=== PATIENT | male | born 1955 | race Caucasian/White ===

== ENCOUNTER 2019-07-06 02:31 | Emergency (ER) | payer BC ==
--- OUTSIDE RECORDS SUMMARY | 2019-07-06 02:35 | XMS REPORT ---
:1955 [facility] [address] [place] [id number] Care Team Providers Name Role Phone MAK ROLLINS Unavailable Unavailable PEPPER DUMONT Unavailable Unavailable TOSHIA REYNA Unavailable Unavailable Problems This patient has no known problems. Allergies, Adverse Reactions, Alerts This patient has no known allergies or adverse reactions. Medications This patient has no known medications. Results Test Description Test Time Test Comments Text Results Atomic Results Result Comments BASIC METABOLIC PANEL 2017-02-13 05:26:00 Test Item Value Reference Range Comments SODIUM (BEAKER) (test 139 meq/L 136-145 xjxp=841) POTASSIUM (BEAKER) (test 4.2 meq/L 3.5-5.1 nous=328) CHLORIDE (BEAKER) (test 105 meq/L 98-107 foad=102) CO2 (BEAKER) (test mphj=877) 25 meq/L 22-29 BLOOD UREA NITROGEN (BEAKER) 13 mg/dL 7-21 (test rcow=198) CREATININE (BEAKER) (test 0.98 mg/dL 0.57-1.25 qchk=452) GLUCOSE RANDOM (BEAKER) 92 mg/dL 70-105 (test boaw=391) CALCIUM (BEAKER) (test 8.4 mg/dL 8.4-10.2 rdpm=413) EGFR (BEAKER) (test 78 mL/min/1.73 sq m ESTIMATED GFR IS NOT smpz=7926) ACCURATE CREATININE CLEARANCE IN PREDICTING GLOMERULAR FILTRATION RATE. ESTIMATED GFR IS NOT APPLICABLE FOR DIALYSIS PATIENTS. PROTHROMBIN [id number] 04:37:00 Test Item Value Reference Range Comments PROTIME (BEAKER) (test sluy=838) 21.5 seconds 11.7-14.7 INR (BEAKER) (test zilg=218) 1.9 <=5.9 RECOMMENDED COUMADIN/WARFARIN INR THERAPY RANGESSTANDARD DOSE: 2.0 - 3.0 Includes: PROPHYLAXIS forvenous thrombosis, systemic embolization; TREATMENT for venous thrombosis and/or pulmonary embolus.HIGH RISK: Target INR is 2.5-3.5 for patients with mechanical heart valves.While on warfarin.CBC W/PLT COUNT &amp ; AUTO [id number] 04:30:00 Test Item Value Reference Range Comments WHITE BLOOD CELL COUNT (BEAKER) (test sxoe=591) 7.7 K/ L 3.5-10.5 RED BLOOD CELL COUNT (BEAKER) (test eavs=783) 3.23 M/ L 4.63-6.08 HEMOGLOBIN (BEAKER) (test dllc=392) 9.2 GM/DL 13.7-17.5 HEMATOCRIT (BEAKER) (test ewpz=919) 29.6 % 40.1-51.0 MEAN CORPUSCULAR VOLUME (BEAKER) (test gzvz=797) 91.6 fL 79.0-92.2 MEAN CORPUSCULAR HEMOGLOBIN (BEAKER) (test 28.5 pg 25.7-32.2 zqgr=133) MEAN CORPUSCULAR HEMOGLOBIN CONC (BEAKER) (test 31.1 GM/DL 32.3-36.5 grco=857) RED CELL DISTRIBUTION WIDTH (BEAKER) (test 13.5 % 11.6-14.4 jbgd=944) PLATELET COUNT (BEAKER) (test qxgl=684) 357 K/CU MM 150-450 MEAN PLATELET VOLUME (BEAKER) (test nkcs=523) 9.4 fL 9.4-12.4 NUCLEATED RED BLOOD CELLS (BEAKER) (test 0 /100 WBC 0-0 gymb=460) NEUTROPHILS RELATIVE PERCENT (BEAKER) (test 66 % bvus=829) LYMPHOCYTES RELATIVE PERCENT (BEAKER) (test 18 % cugx=007) MONOCYTES RELATIVE PERCENT (BEAKER) (test 11 % htbk=687) EOSINOPHILS RELATIVE PERCENT (BEAKER) (test 3 % bzic=411) BASOPHILS RELATIVE PERCENT (BEAKER) (test 1 % xdtg=750) NEUTROPHILS ABSOLUTE COUNT (BEAKER) (test 5.05 K/ L 1.78-5.38 oprt=513) LYMPHOCYTES ABSOLUTE COUNT (BEAKER) (test 1.40 K/ L 1.32-3.57 gfxc=226) MONOCYTES ABSOLUTE COUNT (BEAKER) (test 0.85 K/ L 0.30-0.82 jaca=819) EOSINOPHILS ABSOLUTE COUNT (BEAKER) (test 0.20 K/ L 0.04-0.54 dppk=067) BASOPHILS ABSOLUTE COUNT (BEAKER) (test 0.06 K/ L 0.01-0.08 gpph=586) IMMATURE GRANULOCYTES-RELATIVE PERCENT (BEAKER) 1 % 0-1 (test suoc=5532) BASIC METABOLIC [id number] 05:51:00 Test Item Value Reference Range Comments SODIUM (BEAKER) (test 139 meq/L 136-145 jkwn=007) POTASSIUM (BEAKER) (test 4.0 meq/L 3.5-5.1 mysw=170) CHLORIDE (BEAKER) (test 108 meq/L 98-107 jlav=186) CO2 (BEAKER) (test 23 meq/L 22-29 mbxf=511) BLOOD UREA NITROGEN 10 mg/dL 7-21 (BEAKER) (test czxz=299) CREATININE (BEAKER) (test 0.87 mg/dL 0.57-1.25 kqzj=330) GLUCOSE RANDOM (BEAKER) 96 mg/dL 70-105 (test lqzi=731) CALCIUM (BEAKER) (test 8.1 mg/dL 8.4-10.2 pzmq=404) EGFR (BEAKER) (test 89 mL/min/1.73 sq m ESTIMATED GFR IS NOT uezk=6675) ACCURATE CREATININE CLEARANCE IN PREDICTING GLOMERULAR FILTRATION RATE. ESTIMATED GFR IS NOT APPLICABLE FOR DIALYSIS PATIENTS. PROTHROMBIN [id number] 05:33:00 Test Item Value Reference Range Comments PROTIME (BEAKER) (test iqyt=953) 18.4 seconds 11.7-14.7 INR (BEAKER) (test gayc=109) 1.5 <=5.9 RECOMMENDED COUMADIN/WARFARIN INR THERAPY RANGESSTANDARD DOSE: 2.0 - 3.0 Includes: PROPHYLAXIS forvenous thrombosis, systemic embolization; TREATMENT for venous thrombosis and/or pulmonary embolus.HIGH RISK: Target INR is 2.5-3.5 for patients with mechanical heart valves.While on warfarin.CBC W/PLT COUNT &amp ; AUTO [id number] 05:28:00 Test Item Value Reference Range Comments WHITE BLOOD CELL COUNT (BEAKER) (test jqvo=184) 6.6 K/ L 3.5-10.5 RED BLOOD CELL COUNT (BEAKER) (test bfny=379) 2.96 M/ L 4.63-6.08 HEMOGLOBIN (BEAKER) (test flbv=690) 8.5 GM/DL 13.7-17.5 HEMATOCRIT (BEAKER) (test bjwj=396) 26.9 % 40.1-51.0 MEAN CORPUSCULAR VOLUME (BEAKER) (test ypyw=168) 90.9 fL 79.0-92.2 MEAN CORPUSCULAR HEMOGLOBIN (BEAKER) (test 28.7 pg 25.7-32.2 gbwa=457) MEAN CORPUSCULAR HEMOGLOBIN CONC (BEAKER) (test 31.6 GM/DL 32.3-36.5 ream=416) RED CELL DISTRIBUTION WIDTH (BEAKER) (test 13.8 % 11.6-14.4 raey=909) PLATELET COUNT (BEAKER) (test asgw=786) 342 K/CU MM 150-450 MEAN PLATELET VOLUME (BEAKER) (test cbal=762) 9.1 fL 9.4-12.4 NUCLEATED RED BLOOD CELLS (BEAKER) (test 0 /100 WBC 0-0 gqss=372) NEUTROPHILS RELATIVE PERCENT (BEAKER) (test 64 % ijkt=165) LYMPHOCYTES RELATIVE PERCENT (BEAKER) (test 19 % wdva=689) MONOCYTES RELATIVE PERCENT (BEAKER) (test 12 % ljvl=972) EOSINOPHILS RELATIVE PERCENT (BEAKER) (test 3 % jsbi=656) BASOPHILS RELATIVE PERCENT (BEAKER) (test 1 % ylfw=843) NEUTROPHILS ABSOLUTE COUNT (BEAKER) (test 4.24 K/ L 1.78-5.38 admq=410) LYMPHOCYTES ABSOLUTE COUNT (BEAKER) (test 1.25 K/ L 1.32-3.57 rvio=934) MONOCYTES ABSOLUTE COUNT (BEAKER) (test 0.78 K/ L 0.30-0.82 nlkl=410) EOSINOPHILS ABSOLUTE COUNT (BEAKER) (test 0.20 K/ L 0.04-0.54 xhul=862) BASOPHILS ABSOLUTE COUNT (BEAKER) (test 0.07 K/ L 0.01-0.08 lsus=848) IMMATURE GRANULOCYTES-RELATIVE PERCENT (BEAKER) 1 % 0-1 (test wroh=4986) PROTHROMBIN TIME/[id number] 08:49:00 Test Item Value Reference Range Comments PROTIME (BEAKER) (test qkqx=563) 14.6 seconds 11.7-14.7 INR (BEAKER) (test wmqm=015) 1.1 <=5.9 RECOMMENDED COUMADIN/WARFARIN INR THERAPY RANGESSTANDARD DOSE: 2.0 - 3.0 Includes: PROPHYLAXIS forvenous thrombosis, systemic embolization; TREATMENT for venous thrombosis and/or pulmonary embolus.HIGH RISK: Target INR is 2.5-3.5 for patients with mechanical heart valves.While on warfarin.[id number] 05:23:00 Test Item Value Reference Range Comments MAGNESIUM (BEAKER) (test nvtm=700) 2.0 mg/dL 1.6-2.6 BASIC METABOLIC [id number] 05:23:00 Test Item Value Reference Range Comments SODIUM (BEAKER) (test 138 meq/L 136-145 iveh=487) POTASSIUM (BEAKER) (test 3.8 meq/L 3.5-5.1 sbmg=405) CHLORIDE (BEAKER) (test 106 meq/L 98-107 zwdd=117) CO2 (BEAKER) (test 24 meq/L 22-29 laxn=074) BLOOD UREA NITROGEN 11 mg/dL 7-21 (BEAKER) (test vnmu=942) CREATININE (BEAKER) (test 0.85 mg/dL 0.57-1.25 asaf=469) GLUCOSE RANDOM (BEAKER) 99 mg/dL 70-105 (test fbzb=944) CALCIUM (BEAKER) (test 8.2 mg/dL 8.4-10.2 qpur=846) EGFR (BEAKER) (test 92 mL/min/1.73 sq m ESTIMATED GFR IS NOT opav=8944) ACCURATE CREATININE CLEARANCE IN PREDICTING GLOMERULAR FILTRATION RATE. ESTIMATED GFR IS NOT APPLICABLE FOR DIALYSIS PATIENTS. [id number] 05:22:00 Test Item Value Reference Range Comments PHOSPHORUS (BEAKER) (test pqdl=059) 3.6 mg/dL 2.3-4.7 CBC W/PLT COUNT & AUTO [id number] 05:01:00 Test Item Value Reference Range Comments WHITE BLOOD CELL COUNT (BEAKER) (test luir=791) 6.5 K/ L 3.5-10.5 RED BLOOD CELL COUNT (BEAKER) (test ksff=002) 2.92 M/ L 4.63-6.08 HEMOGLOBIN (BEAKER) (test oscd=507) 8.3 GM/DL 13.7-17.5 HEMATOCRIT (BEAKER) (test woiy=157) 26.7 % 40.1-51.0 MEAN CORPUSCULAR VOLUME (BEAKER) (test dgms=670) 91.4 fL 79.0-92.2 MEAN CORPUSCULAR HEMOGLOBIN (BEAKER) (test 28.4 pg 25.7-32.2 xrsj=430) MEAN CORPUSCULAR HEMOGLOBIN CONC (BEAKER) (test 31.1 GM/DL 32.3-36.5 eylv=847) RED CELL DISTRIBUTION WIDTH (BEAKER) (test 13.6 % 11.6-14.4 mjhe=571) PLATELET COUNT (BEAKER) (test xjni=575) 328 K/CU MM 150-450 MEAN PLATELET VOLUME (BEAKER) (test qakt=491) 9.0 fL 9.4-12.4 NUCLEATED RED BLOOD CELLS (BEAKER) (test 0 /100 WBC 0-0 sfgz=373) NEUTROPHILS RELATIVE PERCENT (BEAKER) (test 66 % tpjk=296) LYMPHOCYTES RELATIVE PERCENT (BEAKER) (test 17 % owey=927) MONOCYTES RELATIVE PERCENT (BEAKER) (test 11 % vanj=529) EOSINOPHILS RELATIVE PERCENT (BEAKER) (test 4 % qztr=149) BASOPHILS RELATIVE PERCENT (BEAKER) (test 1 % pqdf=688) NEUTROPHILS ABSOLUTE COUNT (BEAKER) (test 4.27 K/ L 1.78-5.38 fnar=105) LYMPHOCYTES ABSOLUTE COUNT (BEAKER) (test 1.13 K/ L 1.32-3.57 mhhk=782) MONOCYTES ABSOLUTE COUNT (BEAKER) (test 0.73 K/ L 0.30-0.82 mpdv=799) EOSINOPHILS ABSOLUTE COUNT (BEAKER) (test 0.24 K/ L 0.04-0.54 tpjh=933) BASOPHILS ABSOLUTE COUNT (BEAKER) (test 0.06 K/ L 0.01-0.08 cwzd=399) IMMATURE GRANULOCYTES-RELATIVE PERCENT (BEAKER) 1 % 0-1 (test zvbs=2226) URINE [id number] 12:18:00 Test Item Value Reference Range Comments CULTURE (BEAKER) (test aebk=3843) No growth [id number] 06:26:00 Test Item Value Reference Range Comments PHOSPHORUS (BEAKER) (test xwuk=961) 4.1 mg/dL 2.3-4.7 [id number] 06:26:00 Test Item Value Reference Range Comments MAGNESIUM (BEAKER) (test hrkv=865) 2.0 mg/dL 1.6-2.6 BASIC METABOLIC [id number] 06:26:00 Test Item Value Reference Range Comments SODIUM (BEAKER) (test 140 meq/L 136-145 bioy=703) POTASSIUM (BEAKER) (test 3.9 meq/L 3.5-5.1 jjhh=105) CHLORIDE (BEAKER) (test 107 meq/L 98-107 oegl=955) CO2 (BEAKER) (test 25 meq/L 22-29 yvod=642) BLOOD UREA NITROGEN 9 mg/dL 7-21 (BEAKER) (test inzw=382) CREATININE (BEAKER) (test 0.91 mg/dL 0.57-1.25 ecqd=437) GLUCOSE RANDOM (BEAKER) 93 mg/dL 70-105 (test znug=766) CALCIUM (BEAKER) (test 8.2 mg/dL 8.4-10.2 flhx=669) EGFR (BEAKER) (test 85 mL/min/1.73 sq m ESTIMATED GFR IS NOT ynyr=4261) ACCURATE CREATININE CLEARANCE IN PREDICTING GLOMERULAR FILTRATION RATE. ESTIMATED GFR IS NOT APPLICABLE FOR DIALYSIS PATIENTS. CBC W/PLT COUNT & AUTO [id number] 05:37:00 Test Item Value Reference Range Comments WHITE BLOOD CELL COUNT (BEAKER) (test hffu=277) 7.2 K/ L 3.5-10.5 RED BLOOD CELL COUNT (BEAKER) (test pxwg=942) 2.76 M/ L 4.63-6.08 HEMOGLOBIN (BEAKER) (test cgom=401) 7.8 GM/DL 13.7-17.5 HEMATOCRIT (BEAKER) (test jqld=728) 25.6 % 40.1-51.0 MEAN CORPUSCULAR VOLUME (BEAKER) (test twbt=241) 92.8 fL 79.0-92.2 MEAN CORPUSCULAR HEMOGLOBIN (BEAKER) (test 28.3 pg 25.7-32.2 zvjy=658) MEAN CORPUSCULAR HEMOGLOBIN CONC (BEAKER) (test 30.5 GM/DL 32.3-36.5 zyzk=721) RED CELL DISTRIBUTION WIDTH (BEAKER) (test 13.8 % 11.6-14.4 rjjx=338) PLATELET COUNT (BEAKER) (test uvxe=515) 314 K/CU MM 150-450 MEAN PLATELET VOLUME (BEAKER) (test xdex=643) 9.6 fL 9.4-12.4 NUCLEATED RED BLOOD CELLS (BEAKER) (test 0 /100 WBC 0-0 bytt=576) NEUTROPHILS RELATIVE PERCENT (BEAKER) (test 68 % lgpu=857) LYMPHOCYTES RELATIVE PERCENT (BEAKER) (test 15 % jbqw=541) MONOCYTES RELATIVE PERCENT (BEAKER) (test 12 % ypny=944) EOSINOPHILS RELATIVE PERCENT (BEAKER) (test 3 % xmcp=673) BASOPHILS RELATIVE PERCENT (BEAKER) (test 1 % wkio=519) NEUTROPHILS ABSOLUTE COUNT (BEAKER) (test 4.89 K/ L 1.78-5.38 wrua=385) LYMPHOCYTES ABSOLUTE COUNT (BEAKER) (test 1.08 K/ L 1.32-3.57 dtys=655) MONOCYTES ABSOLUTE COUNT (BEAKER) (test 0.84 K/ L 0.30-0.82 jggq=802) EOSINOPHILS ABSOLUTE COUNT (BEAKER) (test 0.20 K/ L 0.04-0.54 omng=376) BASOPHILS ABSOLUTE COUNT (BEAKER) (test 0.06 K/ L 0.01-0.08 lsab=317) IMMATURE GRANULOCYTES-RELATIVE PERCENT (BEAKER) 1 % 0-1 (test kdau=1079) [id number] 06:02:00 Test Item Value Reference Range Comments PHOSPHORUS (BEAKER) (test jogh=484) 3.9 mg/dL 2.3-4.7 [id number] 06:02:00 Test Item Value Reference Range Comments MAGNESIUM (BEAKER) (test gkpy=061) 2.0 mg/dL 1.6-2.6 BASIC METABOLIC [id number] 06:02:00 Test Item Value Reference Range Comments SODIUM (BEAKER) (test 137 meq/L 136-145 hfsf=271) POTASSIUM (BEAKER) (test 3.2 meq/L 3.5-5.1 bcya=111) CHLORIDE (BEAKER) (test 102 meq/L 98-107 txtq=991) CO2 (BEAKER) (test 25 meq/L 22-29 yaoy=392) BLOOD UREA NITROGEN 11 mg/dL 7-21 (BEAKER) (test gnuk=941) CREATININE (BEAKER) (test 0.87 mg/dL 0.57-1.25 zlvf=447) GLUCOSE RANDOM (BEAKER) 100 mg/dL 70-105 (test spuu=995) CALCIUM (BEAKER) (test 8.0 mg/dL 8.4-10.2 ctww=344) EGFR (BEAKER) (test 89 mL/min/1.73 sq m ESTIMATED GFR IS NOT oxfo=4311) ACCURATE CREATININE CLEARANCE IN PREDICTING GLOMERULAR FILTRATION RATE. ESTIMATED GFR IS NOT APPLICABLE FOR DIALYSIS PATIENTS. CBC W/PLT COUNT & AUTO [id number] 05:40:00 Test Item Value Reference Range Comments WHITE BLOOD CELL COUNT (BEAKER) (test aqau=950) 7.0 K/ L 3.5-10.5 RED BLOOD CELL COUNT (BEAKER) (test ktls=565) 2.73 M/ L 4.63-6.08 HEMOGLOBIN (BEAKER) (test xziq=052) 8.0 GM/DL 13.7-17.5 HEMATOCRIT (BEAKER) (test tyxp=534) 25.2 % 40.1-51.0 MEAN CORPUSCULAR VOLUME (BEAKER) (test lczt=959) 92.3 fL 79.0-92.2 MEAN CORPUSCULAR HEMOGLOBIN (BEAKER) (test 29.3 pg 25.7-32.2 vlho=305) MEAN CORPUSCULAR HEMOGLOBIN CONC (BEAKER) (test 31.7 GM/DL 32.3-36.5 yskf=301) RED CELL DISTRIBUTION WIDTH (BEAKER) (test 13.7 % 11.6-14.4 suff=573) PLATELET COUNT (BEAKER) (test ldxn=208) 278 K/CU MM 150-450 MEAN PLATELET VOLUME (BEAKER) (test gnaq=737) 9.6 fL 9.4-12.4 NUCLEATED RED BLOOD CELLS (BEAKER) (test 0 /100 WBC 0-0 ixpq=566) NEUTROPHILS RELATIVE PERCENT (BEAKER) (test 68 % rdrq=447) LYMPHOCYTES RELATIVE PERCENT (BEAKER) (test 16 % vxry=886) MONOCYTES RELATIVE PERCENT (BEAKER) (test 12 % cbsp=903) EOSINOPHILS RELATIVE PERCENT (BEAKER) (test 2 % eaar=501) BASOPHILS RELATIVE PERCENT (BEAKER) (test 1 % pdwl=699) NEUTROPHILS ABSOLUTE COUNT (BEAKER) (test 4.78 K/ L 1.78-5.38 fvrt=117) LYMPHOCYTES ABSOLUTE COUNT (BEAKER) (test 1.11 K/ L 1.32-3.57 dqeq=640) MONOCYTES ABSOLUTE COUNT (BEAKER) (test 0.84 K/ L 0.30-0.82 awhe=423) EOSINOPHILS ABSOLUTE COUNT (BEAKER) (test 0.17 K/ L 0.04-0.54 yijj=168) BASOPHILS ABSOLUTE COUNT (BEAKER) (test 0.05 K/ L 0.01-0.08 ubtu=798) IMMATURE GRANULOCYTES-RELATIVE PERCENT (BEAKER) 1 % 0-1 (test bzun=8244) TISSUE [id number] 15:55:00Surgical Pathology Report Case: [id number] Authorizing Provider: Toshia Reyna MD Collected: 01/30/2017 1109 Ordering Location: [facility] PERIOPERATIVE Received: 01/30/2017 1242 SERVICES Pathologist: Nikolay García MD Specimens: A) - Lymph Node, Pelvic, Right, RIGHT PELVIC LYMPH NODE B) - Ligament, LEFT DEVAN'S LIGAMENT C) - LymphNode, LEFT OBTURATOR NODE D) - Lymph Node, RIGHT EXTERNAL ILIUM NODE E) - Lymph Node,RIGHT OBTURATOR LYMPH NODE F) - Prostate, RADICAL PROSTATECTOMY A. LYMPH NODES, RIGHT PELVIC, DISSECTION: - FOUR LYMPH NODES NEGATIVE FOR MALIGNANCY (0/4)B. LYMPH NODE, LEFT DEVAN'S LIGAMENT, EXCISION: - ONE LYMPH NODE NEGATIVE FOR MALIGNANCY (0/1)C. LYMPH NODES, LEFT OBTURATOR, DISSECTION: - SEVEN LYMPH NODES NEGATIVE FOR MALIGNANCY (0/7)D. LYMPH NODES, RIGHT EXTERNAL ILIAC ILIUM, DISSECTION: - THREE LYMPH NODES NEGATIVE FOR MALIGNANCY (0/3)E. LYMPH NODES, RIGHT OBTURATOR, DISSECTION: - SEVEN LYMPH NODES NEGATIVE FOR MALIGNANCY (0/7)F. PROSTATE, RADICAL RETROPUBIC PROSTATECTOMY : - ADENOCARCINOMA, CORBY 3+4=7, CONFINED TO THE PROSTATE, SURGICAL MARGINS NEGATIVE SEMINAL VESICLES, RADICAL RETROPUBIC PROSTATECTOMY : - NO PATHOLOGIC DIAGNOSIS Signing Pathologist Direct Phone Line: [phone] signed by Nikolay García MD on 02/08/2017 at 3:55PMPreliminary result electronically signed by Nikolay García MD on 02/06/2017 at 3:53 PMSections show foci of adenocarcinoma in the bilateral peripheral zone in the apex and mid gland and inthe anterior transition zone in the apex. Excellent preservation of the neurovascular bundles is noted from examination of the surgical specimen.PROSTATE GLAND: Radical Prostatectomy (Prostate Res - All Specimens) Specimen Site: Prostatic structure Tumor Site: Prostatic structureSPECIMENProcedure: Radical prostatectomy Prostate Size: Size (cm): 5.2 cm Size (cm ): 4.2 cm Size (cm): 4 cm Prostate Weight: Specify Weight (g ): 54.4 Lymph Node Sampling: Pelvic lymph node dissectionTUMOR Histologic Type: Adenocarcinoma (acinar, not otherwise specified) [place]by Pattern: Corby pattern Primary Pattern: Grade 3 Secondary Pattern: Grade 4 Tertiary Pattern: Not applicable Total [place] Score: 7 Tumor Quantitation: Proportion (percentage) of Prostate Involved by Tumor Specify (%): 10 Tumor Quantitation: Tumor size (dominant nodule, if present) Greatest Dimension (mm): 21 mm Additional Dimension (mm): 15 mm Additional Dimension (mm): 10 mm Extraprostatic Extension: Not identified Seminal Vesicle Invasion (invasion of muscular wall required): Not identified Lymph-Vascular Invasion: Not Identified Perineural Invasion: Present Treatment Effect: Not identifiedMARGINS Margins: Margins uninvolved by invasive carcinomaLYMPH NODES Regional Lymph Nodes: Number of Lymph Nodes Examined: Specify number: 22 Number of Lymph Nodes Involved: None identifiedSTAGE (pTNM) Primary Tumor (pT): +pT2c: Bilateral disease Regional Lymph Nodes (pN): pN0: No regional lymph node metastasis Distant Metastasis (pM): Not applicableADDITIONAL FINDINGS Additional Pathologic Findings: High-grade prostatic intraepithelial neoplasia (PIN) Additional Pathologic Findings: Nodular prostatic hyperplasiaSPECIAL STUDIES Ancillary Studies: Not [id number], [id number] cancerA. Right pelvic lymph node; B. Left Devan's ligament; C. Left obturator node; D. Right external iliac ilium node;E. Right obturator lymph node; F. prostate.The specimen is received in five containers of formalin all labeled with the patient 's information. Specimen A labeled "right pelvic lymph node" consists of adipose tissue measuring 3 x 2 x 1 cm yielding two rodgers-pink gritty lymph nodes measuring 0.8 and 3 cm.The specimen is entirely submitted as follows: A1 and A2 , largest lymph node bisected; A3, smaller lymph node bisected; A4 and 5, remainder of adipose tissue.Specimen B labeled "left Devan's ligament"consists of a rodgers-pink gritty lymph node measuring 2 x 1 x 0.4 cm with no other tissue present. Lymph node is entirely submitted B1. Specimen C labeled "left obturator node" consists of adipose tissue measuring 5 x 3 x 1 cm in aggregate yielding six fatty lymph nodes measuring up to 3.6 cm. The specimen is entirely submitted as follows: C1, six lymph nodes; C2 through C5, largest lymph node; C6 through C8, remainder of adipose tissue.Specimen D labeled "right external ilium node" consists of adiposetissue measuring 4.5 x 4 x 2.5 cm in aggregate, yielding three rodgers-red fatty lymph nodes measuring up to 2.6 cm. The specimen is entirely submitted as follows: D1, one lymph node bisected; D2 and 3, one lymph node bisected; D4 and 5, one lymph node bisected; D6 to D8, remainder of adipose tissue.Specimen E labeled "right obturator lymph node" consists of adipose tissue measuring 4 x 2.5 x 2 cm in aggregate yielding two lymph nodes measuring 0.6 and 2 cm. The specimen is entirely submitted as follows: E1, smaller lymph node; E2, E3 and E4, largest lymph node bisected; E5 and 6, remainder of adipose tissue. CG/pl Specimen F is received is a prostate with bilateral seminal vesicles and vas deferens. The prostate weighs 54.4 gm and measures 4.2 cm apex to base, 5.2 cm transversely and 4.0 cm anteriorto posterior. The right and left seminal vesicles measure 4.5 x 1.0 x 0.5 cm and 3.8 x 1.0 x 1.0 cm respectively. The right and left vasa deferentia measure 2.5 cm and 3.0 cm in length respectively and0.5 cm in diameter. The capsular surface of the prostate is purple-rodgers to red, dusky, focally ragged.Ink code: Right-black, left-blue.The prostate is serially sectioned from apex to base into ten slices to reveal pink-rodgers to hernadez-white, homogeneous, focally nodular prostatic parenchyma throughout. No discrete masses are identified. The prostate gland is entirely submitted.Sectioning of the seminal vesicles reveals a pink-rodgers unremarkable cut surface.Section code: The apical margins are submitted into cassette F1, and bladder neck margins are submitted into cassette F2; prostate slices are submittedin cassettes F3 through F8; right and left seminal vesicles are submitted in F9; seminal vesicle tips are submitted in F10. ?/ewPerformedCT, CHEST WITH IV CONTRAST- PE TEST [id number] 10:37: 00FINAL REPORT CT of the chest, pulmonary embolism protocol Clinical History:leg swelling, low O2 stat, recent pelvis surgery for cancer Technique: Precontrast axial images at the level of the pulmonary outflow tract are obtained for the purpose of contrast bolus tracking. Postcontrast axial images of the chest are subsequently obtained with optimal pulmonary arterial enhancement followed by delayed postcontrast images. Coronal 2D reformatted images are reviewed. This examwas performed according to our departmental dose optimization program which includes automated exposure control , adjustment of the mA and/or kV according to patient's size and/or use of iterative reconstructive technique. Comparison Film: None Discussion: Multiple filling defects are present in the right main pulmonary artery, as well as bilateral segmental and subsegmental pulmonary arteries. Thereis no supraclavicular, axillary, mediastinal or hilar lymphadenopathy. Heart and pericardium appear unremarkable. There is a small amount of fluid and air in the distal esophagus, which could be related to reflux. There is trace right- sided pleural effusion. Patchy consolidation is noted in the posterior right lower lobe, favor pulmonary infarct, alternate considerations also include aspiration, or pneumonitis. Central airways are patent, no bronchiectasis, or bronchial wall thickening. There are small nonobstructive stones in the right kidney. A few small well-circumscribed hypodensities in liver probably represent cysts. Osseous structures demonstrate early degenerative changes. Impression: Bilateral pulmonary emboli. This result is reported to Dr. Nichole Alan at the time of dictation. Trace right-sided pleural effusion. Consolidation in the posterior right lower lobe probably reflects pulmonary infarct, alternate considerations also include aspiration or pneumonitis. Small nonobstructive stones in the right kidney. Signed: Pawan Whitman MDReport Verified Date/Time: 02/08/2017 10:37:56 Reading Location: [facility] B1 C013Y CT Body Reading Room RAD , CHEST, 1 VIEW, NON [id number] 08:47:00Reason for exam:->low satsShould this be performed at the bedside?->YesFINAL REPORT TECHNIQUE: Frontal chest radiograph dated 02/08/2017. CLINICAL HISTORY: Low sats COMPARISON STUDY: None IMPRESSION:Lung volume is low accentuating pulmonary vasculature. Minimal atelectasis is seen in the lung bases. No pleural effusion or pneumothorax. Cardiomediastinal silhouette is normal in size. No pulmonary edema. No fracture. Degenerative changes are seen in the spine. Signed: Helen Cortes MDReport Verified Date/Time: 02/08/2017 08: 47:12 Reading Location: [facility] Radiology Reading Room URINALYSIS W/ [id number] 08:12:00 Test Item Value Reference Range Comments COLOR (BEAKER) (test kizn=978) Red CLARITY (BEAKER) (test anqn=397) Hazy SPECIFIC GRAVITY UA (BEAKER) (test olnv=506) 1.014 1.001-1.035 PH UA (BEAKER) (test ejbw=458) 6.5 5.0-8.0 PROTEIN UA (BEAKER) (test nrzq=159) 300 mg/dL Negative GLUCOSE UA (BEAKER) (test rsxe=272) 30 mg/dL Negative KETONES UA (BEAKER) (test artl=566) Trace Negative BILIRUBIN UA (BEAKER) (test obux=674) Negative Negative BLOOD UA (BEAKER) (test kmsw=480) Large Negative NITRITE UA (BEAKER) (test npsq=269) Negative Negative LEUKOCYTE ESTERASE UA (BEAKER) (test lybx=218) Moderate Negative UROBILINOGEN UA (BEAKER) (test iwst=217) 0.2 mg/dL 0.2-1.0 RBC UA (BEAKER) (test vmjn=879) > /HPF WBC UA (BEAKER) (test xpkf=703) 17 /HPF MUCUS (BEAKER) (test vvqg=2667) Moderate SOURCE(BEAKER) (test rlrr=6726) Urine, [place] BASIC METABOLIC [id number] 06:24:00 Test Item Value Reference Range Comments SODIUM (BEAKER) (test 133 meq/L 136-145 peml=642) POTASSIUM (BEAKER) (test 3.6 meq/L 3.5-5.1 ahtk=348) CHLORIDE (BEAKER) (test 98 meq/L 98-107 bkrf=095) CO2 (BEAKER) (test 25 meq/L 22-29 lnff=887) BLOOD UREA NITROGEN 15 mg/dL 7-21 (BEAKER) (test lmpj=695) CREATININE (BEAKER) (test 0.88 mg/dL 0.57-1.25 ndso=528) GLUCOSE RANDOM (BEAKER) 103 mg/dL 70-105 (test fssz=307) CALCIUM (BEAKER) (test 8.6 mg/dL 8.4-10.2 yaui=523) EGFR (BEAKER) (test 88 mL/min/1.73 sq m ESTIMATED GFR IS NOT wlfh=3757) ACCURATE CREATININE CLEARANCE IN PREDICTING GLOMERULAR FILTRATION RATE. ESTIMATED GFR IS NOT APPLICABLE FOR DIALYSIS PATIENTS. PROTHROMBIN [id number] 06:06:00 Test Item Value Reference Range Comments PROTIME (BEAKER) (test cjut=344) 15.4 seconds 11.7-14.7 INR (BEAKER) (test umoi=061) 1.2 <=5.9 RECOMMENDED COUMADIN/WARFARIN INR THERAPY RANGESSTANDARD DOSE: 2.0 - 3.0 Includes: PROPHYLAXIS forvenous thrombosis, systemic embolization; TREATMENT for venous thrombosis and/or pulmonary embolus.HIGH RISK: Target INR is 2.5-3.5 for patients with mechanical heart valves.CBC W/PLT COUNT & AUTO [id number] 05:56:00 Test Item Value Reference Range Comments WHITE BLOOD CELL COUNT (BEAKER) (test wygh=652) 11.7 K/ L 3.5-10.5 RED BLOOD CELL COUNT (BEAKER) (test vljs=987) 2.74 M/ L 4.63-6.08 HEMOGLOBIN (BEAKER) (test vzcn=167) 8.3 GM/DL 13.7-17.5 HEMATOCRIT (BEAKER) (test wfck=037) 25.1 % 40.1-51.0 MEAN CORPUSCULAR VOLUME (BEAKER) (test ksgu=926) 91.6 fL 79.0-92.2 MEAN CORPUSCULAR HEMOGLOBIN (BEAKER) (test 30.3 pg 25.7-32.2 bxyb=600) MEAN CORPUSCULAR HEMOGLOBIN CONC (BEAKER) (test 33.1 GM/DL 32.3-36.5 veog=582) RED CELL DISTRIBUTION WIDTH (BEAKER) (test 13.6 % 11.6-14.4 czhq=030) PLATELET COUNT (BEAKER) (test xxkh=430) 280 K/CU MM 150-450 MEAN PLATELET VOLUME (BEAKER) (test mtfv=008) 9.2 fL 9.4-12.4 NUCLEATED RED BLOOD CELLS (BEAKER) (test 0 /100 WBC 0-0 xyjm=687) NEUTROPHILS RELATIVE PERCENT (BEAKER) (test 79 % deib=902) LYMPHOCYTES RELATIVE PERCENT (BEAKER) (test 7 % nzkd=776) MONOCYTES RELATIVE PERCENT (BEAKER) (test 12 % puhs=649) EOSINOPHILS RELATIVE PERCENT (BEAKER) (test 1 % wecc=031) BASOPHILS RELATIVE PERCENT (BEAKER) (test 0 % sydz=705) NEUTROPHILS ABSOLUTE COUNT (BEAKER) (test 9.16 K/ L 1.78-5.38 weux=413) LYMPHOCYTES ABSOLUTE COUNT (BEAKER) (test 0.85 K/ L 1.32-3.57 rkbl=123) MONOCYTES ABSOLUTE COUNT (BEAKER) (test 1.43 K/ L 0.30-0.82 ptpg=638) EOSINOPHILS ABSOLUTE COUNT (BEAKER) (test 0.06 K/ L 0.04-0.54 jmlw=761) BASOPHILS ABSOLUTE COUNT (BEAKER) (test 0.05 K/ L 0.01-0.08 bijv=305) IMMATURE GRANULOCYTES-RELATIVE PERCENT (BEAKER) 1 % 0-1 (test tvkq=7382) BASIC METABOLIC [id number] 05:58:00 Test Item Value Reference Range Comments SODIUM (BEAKER) (test 138 meq/L 136-145 hjgf=358) POTASSIUM (BEAKER) (test 3.8 meq/L 3.5-5.1 kmyd=208) CHLORIDE (BEAKER) (test 107 meq/L 98-107 roxs=531) CO2 (BEAKER) (test 24 meq/L 22-29 wsgv=488) BLOOD UREA NITROGEN 12 mg/dL 7-21 (BEAKER) (test sovj=924) CREATININE (BEAKER) (test 0.72 mg/dL 0.57-1.25 zmcx=944) GLUCOSE RANDOM (BEAKER) 107 mg/dL 70-105 (test awmq=631) CALCIUM (BEAKER) (test 7.8 mg/dL 8.4-10.2 tjhp=422) EGFR (BEAKER) (test 111 mL/min/1.73 sq m ESTIMATED GFR IS NOT yvsv=3576) ACCURATE CREATININE CLEARANCE IN PREDICTING GLOMERULAR FILTRATION RATE. ESTIMATED GFR IS NOT APPLICABLE FOR DIALYSIS PATIENTS. [id number] 05:56:00 Test Item Value Reference Range Comments PHOSPHORUS (BEAKER) (test ndsq=947) 2.7 mg/dL 2.3-4.7 [id number] 05:56:00 Test Item Value Reference Range Comments MAGNESIUM (BEAKER) (test exlj=997) 1.8 mg/dL 1.6-2.6 CBC W/PLT COUNT & AUTO [id number] 05:20:00 Test Item Value Reference Range Comments WHITE BLOOD CELL COUNT (BEAKER) (test ecuh=357) 10.5 K/ L 3.5-10.5 RED BLOOD CELL COUNT (BEAKER) (test tkuq=739) 3.03 M/ L 4.63-6.08 HEMOGLOBIN (BEAKER) (test jknr=914) 8.9 GM/DL 13.7-17.5 HEMATOCRIT (BEAKER) (test vtqb=741) 27.8 % 40.1-51.0 MEAN CORPUSCULAR VOLUME (BEAKER) (test tylx=952) 91.7 fL 79.0-92.2 MEAN CORPUSCULAR HEMOGLOBIN (BEAKER) (test 29.4 pg 25.7-32.2 tbeg=386) MEAN CORPUSCULAR HEMOGLOBIN CONC (BEAKER) (test 32.0 GM/DL 32.3-36.5 rvmj=703) RED CELL DISTRIBUTION WIDTH (BEAKER) (test 13.5 % 11.6-14.4 olji=924) PLATELET COUNT (BEAKER) (test iiqr=728) 149 K/CU MM 150-450 MEAN PLATELET VOLUME (BEAKER) (test avgn=164) 10.7 fL 9.4-12.4 NUCLEATED RED BLOOD CELLS (BEAKER) (test 0 /100 WBC 0-0 lxtk=085) NEUTROPHILS RELATIVE PERCENT (BEAKER) (test 66 % rjxw=197) LYMPHOCYTES RELATIVE PERCENT (BEAKER) (test 18 % qfll=669) MONOCYTES RELATIVE PERCENT (BEAKER) (test 13 % wzyz=884) EOSINOPHILS RELATIVE PERCENT (BEAKER) (test 1 % brcn=172) BASOPHILS RELATIVE PERCENT (BEAKER) (test 1 % iunt=428) NEUTROPHILS ABSOLUTE COUNT (BEAKER) (test 6.96 K/ L 1.78-5.38 mxie=871) LYMPHOCYTES ABSOLUTE COUNT (BEAKER) (test 1.93 K/ L 1.32-3.57 oywc=336) MONOCYTES ABSOLUTE COUNT (BEAKER) (test 1.36 K/ L 0.30-0.82 zbuj=254) EOSINOPHILS ABSOLUTE COUNT (BEAKER) (test 0.12 K/ L 0.04-0.54 bnju=445) BASOPHILS ABSOLUTE COUNT (BEAKER) (test 0.05 K/ L 0.01-0.08 kgun=989) IMMATURE GRANULOCYTES-RELATIVE PERCENT (BEAKER) 1 % 0-1 (test lrjk=6852) CREATININE, BODY [id number] 12:29:00 Test Item Value Reference Range Comments CREATININE FLUID (BEAKER) (test wrva=936) 0.66 mg/dL Reference Range: No Normals Assay performance has not been validated for this type of specimen.BASIC METABOLIC [id number] 05:56:00 Test Item Value Reference Range Comments SODIUM (BEAKER) (test 140 meq/L 136-145 wvqt=384) POTASSIUM (BEAKER) (test 3.6 meq/L 3.5-5.1 eqoy=598) CHLORIDE (BEAKER) (test 110 meq/L 98-107 siaw=770) CO2 (BEAKER) (test 24 meq/L 22-29 uvir=703) BLOOD UREA NITROGEN 10 mg/dL 7-21 (BEAKER) (test ugla=625) CREATININE (BEAKER) (test 0.77 mg/dL 0.57-1.25 fplt=045) GLUCOSE RANDOM (BEAKER) 96 mg/dL 70-105 (test ykpp=640) CALCIUM (BEAKER) (test 7.3 mg/dL 8.4-10.2 gvpc=483) EGFR (BEAKER) (test 103 mL/min/1.73 sq m ESTIMATED GFR IS NOT bspk=2659) ACCURATE CREATININE CLEARANCE IN PREDICTING GLOMERULAR FILTRATION RATE. ESTIMATED GFR IS NOT APPLICABLE FOR DIALYSIS PATIENTS. [id number] 05:49:00 Test Item Value Reference Range Comments PHOSPHORUS (BEAKER) (test dqwv=427) 2.3 mg/dL 2.3-4.7 [id number] 05:49:00 Test Item Value Reference Range Comments MAGNESIUM (BEAKER) (test fcku=846) 1.9 mg/dL 1.6-2.6 HEMOGLOBIN AND [id number] 05:27:00 Test Item Value Reference Range Comments HEMOGLOBIN (BEAKER) (test ckno=551) 9.3 GM/DL 13.7-17.5 HEMATOCRIT (BEAKER) (test grwz=321) 28.4 % 40.1-51.0 BASIC METABOLIC [id number] 06:15:00 Test Item Value Reference Range Comments SODIUM (BEAKER) (test 139 meq/L 136-145 zzdm=165) POTASSIUM (BEAKER) (test 4.0 meq/L 3.5-5.1 sgcf=806) CHLORIDE (BEAKER) (test 108 meq/L 98-107 pofg=173) CO2 (BEAKER) (test 26 meq/L 22-29 bmxb=550) BLOOD UREA NITROGEN 10 mg/dL 7-21 (BEAKER) (test lhtt=926) CREATININE (BEAKER) (test 0.80 mg/dL 0.57-1.25 czsb=750) GLUCOSE RANDOM (BEAKER) 116 mg/dL 70-105 (test fzqa=723) CALCIUM (BEAKER) (test 7.8 mg/dL 8.4-10.2 xszj=136) EGFR (BEAKER) (test 98 mL/min/1.73 sq m ESTIMATED GFR IS NOT jxbj=9212) ACCURATE CREATININE CLEARANCE IN PREDICTING GLOMERULAR FILTRATION RATE. ESTIMATED GFR IS NOT APPLICABLE FOR DIALYSIS PATIENTS. HEMOGLOBIN AND [id number] 05:44:00 Test Item Value Reference Range Comments HEMOGLOBIN (BEAKER) (test raxk=270) 10.1 GM/DL 13.7-17.5 HEMATOCRIT (BEAKER) (test tyah=653) 30.6 % 40.1-51.0 HEMOGLOBIN AND [id number] 17:17:00 Test Item Value Reference Range Comments HEMOGLOBIN (BEAKER) (test ruvj=740) 10.4 GM/DL 13.7-17.5 HEMATOCRIT (BEAKER) (test tqlo=516) 31.9 % 40.1-51.0 BASIC METABOLIC [id number] 16:43:00 Test Item Value Reference Range Comments SODIUM (BEAKER) (test 141 meq/L 136-145 mymm=198) POTASSIUM (BEAKER) (test 3.5 meq/L 3.5-5.1 zupr=618) CHLORIDE (BEAKER) (test 109 meq/L 98-107 zakk=299) CO2 (BEAKER) (test 21 meq/L 22-29 qers=316) BLOOD UREA NITROGEN 11 mg/dL 7-21 (BEAKER) (test picb=720) CREATININE (BEAKER) (test 0.82 mg/dL 0.57-1.25 gckm=754) GLUCOSE RANDOM (BEAKER) 174 mg/dL 70-105 (test vsud=185) CALCIUM (BEAKER) (test 7.3 mg/dL 8.4-10.2 rvfy=009) EGFR (BEAKER) (test 96 mL/min/1.73 sq m ESTIMATED GFR IS NOT veww=0517) ACCURATE CREATININE CLEARANCE IN PREDICTING GLOMERULAR FILTRATION RATE. ESTIMATED GFR IS NOT APPLICABLE FOR DIALYSIS PATIENTS. [facility] [id number] 12:37:00 Test Item Value Reference Range Comments CALCIUM IONIZED (BEAKER) (test dhhs=256) 1.04 mmol/L 1.12-1.27 PH, BLOOD (BEAKER) (test lbgz=7121) 7.37 BLOOD GAS, [id number] 12:36:00 Test Item Value Reference Range Comments PH ARTERIAL (BEAKER) (test bvbj=334) 7.37 7.35-7.45 PCO2 ARTERIAL (BEAKER) (test wcpr=256) 43 mmHg 35-45 PO2 ARTERIAL (BEAKER) (test dvny=348) 173 mmHg 80-90 O2 SATURATION ARTERIAL (BEAKER) (test vver=288) 99.1 % 96.0-97.0 HCO3 ARTERIAL (BEAKER) (test apol=402) 25 mmol/L 21-29 BASE EXCESS ARTERIAL (BEAKER) (test rggj=062) -0.9 mmol/L -2.0-3.0 PATIENT TEMPERATURE (BEAKER) (test vlhh=9318) 37.0 C FIO2 (BEAKER) (test qzvi=3813) 100.0 % GLUCOSE-STAT [id number] 12:36:00 Test Item Value Reference Range Comments GLUCOSE RANDOM (BEAKER) (test jeok=981) 114 mg/dL 70-110 SODIUM NA-STAT [id number] 12:28:00 Test Item Value Reference Range Comments SODIUM (BEAKER) (test wysv=816) 139 meq/L 135-148 POTASSIUM-STAT [id number] 12:28:00 Test Item Value Reference Range Comments POTASSIUM (BEAKER) (test rbxc=332) 3.9 meq/L 3.6-5.5 HGB/HCT (H&H) - STAT [id number] 12:28:00 Test Item Value Reference Range Comments HEMOGLOBIN (BEAKER) (test imkc=433) 13.8 g/dL 13.0-16.8 HEMATOCRIT (BEAKER) (test sqwz=990) 41.0 % 40.0-50.0 BASIC METABOLIC [id number] 09:59:00 Test Item Value Reference Range Comments SODIUM (BEAKER) (test 140 meq/L 136-145 znjc=510) POTASSIUM (BEAKER) (test 4.2 meq/L 3.5-5.1 Specimen slightly mdbp=809) hemolyzed CHLORIDE (BEAKER) (test 107 meq/L 98-107 zpdf=200) CO2 (BEAKER) (test 24 meq/L 22-29 nsnr=269) BLOOD UREA NITROGEN 12 mg/dL 7-21 (BEAKER) (test cyfe=654) CREATININE (BEAKER) (test 0.87 mg/dL 0.57-1.25 Specimen slightly ytcg=369) hemolyzed GLUCOSE RANDOM (BEAKER) 100 mg/dL 70-105 (test tkra=418) CALCIUM (BEAKER) (test 9.0 mg/dL 8.4-10.2 pwvr=650) EGFR (BEAKER) (test 89 mL/min/1.73 sq m ESTIMATED GFR IS NOT zhdj=0646) ACCURATE CREATININE CLEARANCE IN PREDICTING GLOMERULAR FILTRATION RATE. ESTIMATED GFR IS NOT APPLICABLE FOR DIALYSIS PATIENTS. PROTHROMBIN [id number] 09:40:00 Test Item Value Reference Range Comments PROTIME (BEAKER) (test zuua=690) 14.2 seconds 11.7-14.7 INR (BEAKER) (test sypj=013) 1.1 <=5.9 RECOMMENDED COUMADIN/WARFARIN INR THERAPY RANGESSTANDARD DOSE: 2.0 - 3.0 Includes: PROPHYLAXIS forvenous thrombosis, systemic embolization; TREATMENT for venous thrombosis and/or pulmonary embolus.HIGH RISK: Target INR is 2.5-3.5 for patients with mechanical heart valves.[id number] 15:17:00 Test Item Value Reference Range Comments HEMOGLOBIN (ANIBALAKER) (test jyzg=860) 15.3 GM/DL 13.7-17.5
--- OUTSIDE RECORDS SUMMARY | 2019-07-06 02:35 | XMS REPORT | Summary of Care ---
:1955 Author Organization [facility] [place] [address] Care Team Providers Name Role Phone Luis Gaston MD Primary Care Provider Reason for Visit Reason Comments Follow Up Encounter Details Date Type Department Care Team Description 02/12[facility]2019 [facility] Follow Up Medicine Urology [address] [place] [address] [address], [place] [address] [place] [id number] Allergies No Known Allergiesdocumented as of this encounter (statuses as of 02/12/2019) Medications Medication Sig Dispensed Refills Start Date End Date Status rosuvastatin TAKE 1 TABLET 1 02/04/2019 Active (CRESTOR) 20 MG BY MOUTH tablet EVERY DAY pravastatin 0 08/30/2016 02/12/2019 Discontinued (PRAVACHOL) 40 MG tablet documented as of this encounter (statuses as of 02/12/2019) Active Problems Problem Noted Date Erectile dysfunction following radical prostatectomy 10/16/2018 JAZLYN (stress urinary incontinence), male 04/16/2017 Kidney stone 11/20/2016 Erectile dysfunction due to arterial insufficiency 10/18/2016 Prostate cancer (HCCode) 10/18/2016 High cholesterol documented as of this encounter (statuses as of 02/12/2019) Social History Tobacco Use Types Packs/Day Years Used Date Never Smoker Smokeless Tobacco: Never Used Alcohol Use Drinks/Week oz/Week Comments No Sex Assigned at Date Recorded Not on file Job Start Date Occupation Industry Not on file Not on file Not on file Travel History Travel Start Travel End No recent travel history available. documented as of this encounter Last Filed Vital Signs Vital Sign Reading Time Taken Comments Blood Pressure 136/96 02/12/2019 9:59 AM CDT Pulse 76 02/12/2019 9:59 AM CDT Temperature 36.7 C (98 F) 02/12/2019 9:59 AM CDT Respiratory Rate - - Oxygen Saturation - - Inhaled Oxygen Concentration - - Weight 106.6 kg (235 lb) 02/12/2019 9:59 AM CDT Height 177.8 cm (5' 10") 02/12/2019 9:59 AM CDT Body Mass Index 33.72 02/12/2019 9:59 AM CDT documented in this encounter Progress Notes Janusz Reyna MD - 02/12/2019 10:15 AM CDTAnricha Jeffrey Mesa is a 63 y.o. male comes in with his famiiy post -op RRP Hd pulido out day 8 then [facility] but in by ER Transferred to [facility] and dx with PE On anticoagulation and doing well Path G7 pT2N0 - pt aware Cystogram today with large leak and catheter tip appears outside of bladder Plan: Remove pulido and replace under direct vision with cysto Plan: ROV 2 weeks for cystogram and if leak resolved remove pulido 03/05/2017 Here today for follow up Cystogram still with small leak 04/16/2017 Follow up s/p RRP/PLND on 01/30/2017 Path G3+4, pT2N0 Catheter removed last week and voiding ok with some initial hematuria which clears quickly - reasured JAZLYN-5-6 pads during day and one pad at night. Mostly continent during night times. Has soft erections. He will follow up with Dr. Melendez PSA today No results found for this or any previous visit (from the past 168 hour(s)). Plan: ROV 3 months with pre-clinic PSA, UA and AUASI Today: post resection PSA in [facility] 07/16/1702/05 - RRP Dry no pads! PSA undetectable in 04/07 So much improved Saw Dr. Martinez - [facility] - [facility] for PE No results found for this or any previous visit (from the past 168 hour(s)). Imp:doing very well Plan: PSA today ROV January 2018 with pre-clinic PSA - post resection 08/27/2017 Febrile episode last week manged by PCP Dr. Gaston CT chest (no PE or consolidation) and CT A/P with fluid collection anterior to bladder Treated with ABX and fever resolved Basim Gaston and I spoke the day before and he asked me to address fluid collection Pt c/o frequency PE: Abd soft and non-tender CT films reviewed: small fluid collection anterior to bladder without evidence of infection No other prior studies available for review Imp: no intervention required as I believe this is asx I spent 15 minutes with patient and family, reviewing history and outside records and relevant imaging,conducting physical exam, plus discussion and coordination of care. More than 50% was spent counseling the patient on prognosis and treatment plan. Plan: Advised pt to follow up with Dr. Gaston as he notes perception of SOB 02/18/2018 Now one year s/p RRP 01/30/2017 Path G3+4, pT2N0 Dry no pads Undetectable PSA June 2017 with breast cancer - surgery in november Using BECKA with good results 10/16/2018 Now 1.5+ year s/p RRP 01/30/2017 Path G3+4, pT2N0 Dry no pads Undetectable PSA 02/06 with breast cancer - surgery in november. Doing well Using BECKA with good results No change in health PE: BP (!) 136/96 (BP Location: right arm, Patient Position: Sitting, Cuff Size: large) | Pulse 76 | Temp 98 F (36.7 C) (Oral) | Ht 5' 10" (1.778 m) | Wt 235 lb (106.6 kg) | BMI 33.72 kg/m Well healed incision Imp: Clinically TONI Plan:ROV 6 months with PSA pre clinic PSA ultrasensitive today 02/11/2019 Now 2 years s/p RRP 01/30/2017 Path G3+4, pT2N0 Dry no pads. Nocturia after 4 hours Undetectable PSA .003 September 2018 Using BECKA with good results No change in health Pe: BP (!) 136/96 (BP Location: right arm, Patient Position: Sitting, Cuff Size: large) | Pulse 76 | Temp 98 F (36.7 C) (Oral) | Ht 5' 10" (1.778 m) | Wt 235 lb (106.6 kg) | BMI 33.72 kg/m GEn: healthy appearing in NAD IMp: clinically TONI. ED Plan: PSA done today ROV one year pre-clinic post resection PSA documented in this encounter Plan of Treatment Name Type Priority Associated Diagnoses Order Schedule PSA TOTAL(URO DEPT) Lab Routine Prostate cancer (HCCode) Expected: 2018 (Approximate), Expires: 03/14/2019 Health Maintenance Due Date Last Done Comments COLON CANCER SCREENING: COLONOSCOPY 1955 TETANUS SHOT (ADULT) 1970 BMI FOLLOW UP PLAN 1973 HEPATITIS C SCREENING 1973 HIV SCREENING 1973 FLU VACCINE > 6 MONTHS 11/20/2018 documented as of this encounter Results Not on filedocumented in this encounter Visit Diagnoses Diagnosis Prostate cancer (HCCode) - Primary Malignant neoplasm of prostate Erectile dysfunction following radical prostatectomy Impotence of organic origin documented in this encounter
[2019-07-06] MEDS ORDERED: MORPHINE 4 MG/ML SYR ONE (02:49)
[2019-07-06] MEDS ORDERED: NA CHLORIDE 0.9% 1,000 ML ONE (02:49)
[2019-07-06] MEDS ORDERED: ONDANSETRON 4 MG/2 ML VIAL ONE ×2 (02:49→03:25)
[2019-07-06 03:00] LABS: Basophils % 0.4 % (0-1.3); Hematocrit 46.6 % (39.6-49.0); Lymphocytes % 10.8 % (15.3-44.8); MPV 9.2 fL (7.6-11.3); RBC Red Blood Cell Count 5.19 M/uL (4.33-5.43)
[2019-07-06 03:13] LABS: ALT/SGPT 52 U/L (12-78); AST/SGOT 29 U/L (15-37); Alkaline Phosphatase 81 U/L (45-117); BUN Blood Urea Nitrogen 21 mg/dL (7-18); Bicarbonate 28 mmol/L (21-32); Bilirubin Direct < 0.1 mg/dL (0-0.2); Bilirubin Total 0.4 mg/dL (0.2-1.0); Glucose Level 135 mg/dL (74-106); Lipase 219 U/L (73-393); Potassium 3.8 mmol/L (3.5-5.1); Protein, Total 7.7 g/dL (6.4-8.2); Sodium Level 143 mmol/L (136-145)
[2019-07-06] MEDS ORDERED: KETOROLAC 30 MG/ML INJ ONE (03:14)
--- NOTE | 2019-07-06 04:12 | ER ---
Nurse's Notes [facility] Name: Christ Mesa Age: 64 yrs Sex: Male : 1955 Arrival Date: 07/06/2019 Time: 02:32 Bed 19 Private MD: Diagnosis: Calculus of ureter Presentation: 07/05 02:38 Ebola Screen: No symptoms or risks identified at this time. Initial Sepsis Screen: Does ea the patient meet any 2 criteria? No. Patient's initial sepsis screen is negative. Does the patient have a suspected source of infection? No. Patient's initial sepsis screen is negative. 02:38 Chief complaint: Patient states: Reports right flank pain that started at 0130, rates ea pain 9/10. States " I had prostate surgery they found a few little kidney stones but I have never had pain like this". Coronavirus screen: The patient has NOT traveled to a country currently being monitored by the [facility] within the last 14 days. Risk Assessment: Do you want to hurt yourself or someone else? Patient reports no desire to harm self or others. 02:38 Acuity: CASEY 3 ea 02:38 Method Of Arrival: Ambulatory ea 03:07 Onset of symptoms was July 06, 2019. ea Triage Assessment: 02:38 General: Appears uncomfortable, Behavior is appropriate for age. Pain: Complains of ea pain in right mid back. Neuro: Level of Consciousness is awake, alert, obeys commands, Oriented to person, place, time, situation. Respiratory: Airway is patent Respiratory effort is even, unlabored, Respiratory pattern is regular, symmetrical. GI: Abdomen is non-distended, Reports nausea. Derm: Skin is pink, warm \\T\\ dry. Historical: - Allergies: 03:02 No Known Allergies; ea - Home Meds: 03:02 tramadol 50 mg Oral tab 1 tab every 6 hours [Active]; ea - PMHx: 03:02 PROSTATE CA; High Cholesterol; ea - PSHx: 03:02 prostatectomy; laser prostate treatment; jaw surg; ea - Immunization history:: Adult Immunizations up to date. - Social history:: Smoking status: Patient denies any tobacco usage or history of. Screenin:51 Abuse screen: Denies threats or abuse. Nutritional screening: No deficits noted. ea Tuberculosis screening: No symptoms or risk factors identified. Fall Risk None identified. Assessment: 02:51 Reassessment: Patient and/or family updated on plan of care and expected duration. Pain ea level reassessed. Patient is alert, oriented x 3, equal unlabored respirations, skin warm/dry/pink. Pt taken to CT. Vital Signs: 02:38 BP 140 / 90; Pulse 64; Resp 18; Temp 97.6; Pulse Ox 100% on R/A; Weight 106.59 kg; ea Height 5 ft. 11 in. (180.34 cm); Pain 9/10; 02:38 Body Mass Index 32.78 (106.59 kg, 180.34 cm) ea ED Course: 02:32 Patient arrived in ED. cl3 02:37 Edmundo Moyer MD is Attending Physician. tw4 02:38 Patient placed in an exam room, on a stretcher, on pulse oximetry. ea 02:40 Ellen Geronimo, HILARIO is Primary Nurse. ea 02:42 Pulse ox on. NIBP on. ea 02:45 Initial lab(s) drawn, by me, sent to lab. Inserted saline lock: 20 gauge in right bb antecubital area, using aseptic technique. Blood collected. 02:52 Patient has correct armband on for positive identification. Bed in low position. Call ea light in reach. Side rails up X2. 03:00 Triage completed. ea 03:17 CT Stone Protocol In Process Unspecified. EDMS 04:12 No provider procedures requiring assistance completed. sg 04:20 IV discontinued, intact, bleeding controlled, No redness/swelling at site. Pressure ea dressing applied. Administered Medications: 02:00 Drug: morphine 4 mg Route: IVP; Site: right antecubital; ea 03:27 Follow up: Response: No adverse reaction; Pain is decreased; RASS: Restless (+1); ea verbal order for Toradol 30 mg IVP obtained, medication administered, pt reports pain has decreased 02:48 Drug: Zofran (Ondansetron) 4 mg Route: IVP; Site: right antecubital; ea 03:28 Follow up: Response: No adverse reaction ea 02:48 Drug: NS 0.9% 1000 ml Route: IV; Rate: 1 bolus; Site: right antecubital; ea 04:25 Follow up: Response: No adverse reaction; IV Status: Completed infusion; IV Intake: ea 1000ml 03:18 Drug: TORadol 30 mg Route: IVP; Site: right antecubital; ea 03:26 Follow up: Response: No adverse reaction; Pain is decreased ea 03:25 Drug: Zofran (Ondansetron) 4 mg Route: IVP; Site: right antecubital; ea 04:12 Follow up: Response: No adverse reaction; Nausea is decreased sg 04:20 Drug: Flomax 0.4 mg Route: PO; ea 04:27 Follow up: Response: Medication administered at discharge. ea Intake: 04:25 IV: 1000ml; Total: 1000ml. ea Outcome: 04:11 Discharge ordered by tw4 04:28 Discharged to home ambulatory, with family. ea 04:28 Condition: stable 04:28 Discharge instructions given to patient, Instructed on discharge instructions, follow up and referral plans. medication usage, Demonstrated understanding of instructions, follow-up care, medications, Prescriptions given X 4. 04:29 Patient left the ED. ea Signatures: Dispatcher [employer] EDUgo Devlin RN RN Sushila Stovall RN RN Ellen Mills RN Edmundo Mcclure ea, MD MD tw4 Yunior Lozano cl3 Corrections: (The following items were deleted from the chart) 03:27 03:26 Response: No adverse reaction; Pain is decreased; RASS: Restless (+1) ea ea
--- NOTE | 2019-07-06 04:12 | EDPHYS ---
Physician Documentation [facility] Name: Christ Mesa Age: 64 yrs Sex: Male : 1955 Arrival Date: 07/06/2019 Time: 02:32 Bed 19 Private MD: ED Physician Edmundo Moyer HPI: 07/05 02:43 This 64 yrs old Male presents to ER via Unassigned with complaints of tw4 Possible Kidney Stone. 02:43 The patient complains of pain in the right mid back. The pain does not radiate. Onset: tw4 The symptoms/episode began/occurred today. Modifying factors: The symptoms are alleviated by nothing. the symptoms are aggravated by nothing. Associated signs and symptoms: Pertinent positives: nausea, vomiting. Severity of pain: At its worst the pain was moderate in the emergency department the pain is unchanged. The patient has not experienced similar symptoms in the past. Historical: - Allergies: 03:02 No Known Allergies; ea - Home Meds: 03:02 tramadol 50 mg Oral tab 1 tab every 6 hours [Active]; ea - PMHx: 03:02 PROSTATE CA; High Cholesterol; ea - PSHx: 03:02 prostatectomy; laser prostate treatment; jaw surg; ea - Immunization history:: Adult Immunizations up to date. - Social history:: Smoking status: Patient denies any tobacco usage or history of. ROS: 02:43 Constitutional: Negative for fever, chills, and weight loss, Eyes: Negative for injury, tw4 pain, redness, and discharge, Cardiovascular: Negative for chest pain, palpitations, and edema, Respiratory: Negative for shortness of breath, cough, wheezing, and pleuritic chest pain, Abdomen/GI: Negative for abdominal pain, nausea, vomiting, diarrhea, and constipation, MS/Extremity: Negative for injury and deformity, Skin: Negative for injury, rash, and discoloration, Neuro: Negative for headache, weakness, numbness, tingling, and seizure. 02:43 Back: Positive for flank pain, on the right. Exam: 02:43 Constitutional: This is a well developed, well nourished patient who is awake, alert, tw4 and in no acute distress. Head/Face: Normocephalic, atraumatic. Eyes: Pupils equal round and reactive to light, extra-ocular motions intact. Lids and lashes normal. Conjunctiva and sclera are non-icteric and not injected. Cornea within normal limits. Periorbital areas with no swelling, redness, or edema. Chest/axilla: Normal chest wall appearance and motion. Nontender with no deformity. No lesions are appreciated. Cardiovascular: Regular rate and rhythm with a normal S1 and S2. No gallops, murmurs, or rubs. Normal PMI, no JVD. No pulse deficits. Respiratory: Lungs have equal breath sounds bilaterally, clear to auscultation and percussion. No rales, rhonchi or wheezes noted. No increased work of breathing, no retractions or nasal flaring. Abdomen/GI: Soft, non-tender, with normal bowel sounds. No distension or tympany. No guarding or rebound. No evidence of tenderness throughout. MS/ Extremity: Pulses equal, no cyanosis. Neurovascular intact. Full, normal range of motion. Neuro: Awake and alert, GCS 15, oriented to person, place, time, and situation. Cranial nerves II-XII grossly intact. Motor strength 5/5 in all extremities. Sensory grossly intact. Cerebellar exam normal. Normal gait. 02:43 Back: pain, that is moderate, ROM is normal, CVA tenderness, that is moderate, is noted on the right. Vital Signs: 02:38 BP 140 / 90; Pulse 64; Resp 18; Temp 97.6; Pulse Ox 100% on R/A; Weight 106.59 kg; ea Height 5 ft. 11 in. (180.34 cm); Pain 9/10; 02:38 Body Mass Index 32.78 (106.59 kg, 180.34 cm) ea MDM: 02:48 Patient medically screened. tw4 04:12 Differential diagnosis: nephrolithiasis, pyelonephritis, UTI, ruptured AAA, dissecting tw4 AAA. Data reviewed: vital signs, nurses notes, lab test result(s), CBC, electrolytes, urinalysis, radiologic studies, CT scan. Data interpreted: Pulse oximetry: Interpretation: normal. Counseling: I had a detailed discussion with the patient and/or guardian regarding: the historical points, exam findings, and any diagnostic results supporting the discharge/admit diagnosis. Medication response: Toradol relieved patient's pain. The symptoms have resolved. Response to treatment: the patient's symptoms have resolved after treatment, and as a result, I will discharge patient, administer pain medication. Special discussion: I discussed with the patient/guardian in detail that at this point there is no indication for admission to the hospital. It is understood, however, that if the symptoms persist or worsen the patient needs to return immediately for re-evaluation. 07/05 02:39 Order name: Basic Metabolic Panel; Complete Time: 03:24 tw4 07/05 03:24 Interpretation: Normal except: BUN 21; GLUC 135; CL 110; GFR 58. tw07/05 02:39 Order name: CBC with Diff; Complete Time: 03:24 tw4 07/05 03:24 Interpretation: Normal except: MCH 29.9; MCV 89.9; LALIT% 81.0; LYM% 10.8. 07/05 02:39 Order name: Creatinine for Radiology; Complete Time: 03:24 4 07/05 03:24 Interpretation: Normal except: GFR 57. 07/05 02:39 Order name: Hepatic Function; Complete Time: 03:24 4 07/05 03:24 Interpretation: Normal except: GLOB 3.7. 07/05 02:39 Order name: Lipase; Complete Time: 03:24 4 07/05 03:24 Interpretation: Within normal limits: LIP 219. 07/05 02:42 Order name: CT Stone Protocol ea 07/05 02:39 Order name: IV Saline Lock; Complete Time: 02:51 tw4 07/05 02:39 Order name: Labs collected and sent; Complete Time: 02:51 tw4 Administered Medications: 02:00 Drug: morphine 4 mg Route: IVP; Site: right antecubital; ea 03:27 Follow up: Response: No adverse reaction; Pain is decreased; RASS: Restless (+1); ea verbal order for Toradol 30 mg IVP obtained, medication administered, pt reports pain has decreased 02:48 Drug: Zofran (Ondansetron) 4 mg Route: IVP; Site: right antecubital; ea 03:28 Follow up: Response: No adverse reaction ea 02:48 Drug: NS 0.9% 1000 ml Route: IV; Rate: 1 bolus; Site: right antecubital; ea 04:25 Follow up: Response: No adverse reaction; IV Status: Completed infusion; IV Intake: ea 1000ml 03:18 Drug: TORadol 30 mg Route: IVP; Site: right antecubital; ea 03:26 Follow up: Response: No adverse reaction; Pain is decreased ea 03:25 Drug: Zofran (Ondansetron) 4 mg Route: IVP; Site: right antecubital; ea 04:12 Follow up: Response: No adverse reaction; Nausea is decreased sg 04:20 Drug: Flomax 0.4 mg Route: PO; ea 04:27 Follow up: Response: Medication administered at discharge. ea Disposition: 07/06/19 04:11 Discharged to Home. Impression: Calculus of ureter. - Condition is Stable. - Discharge Instructions: Renal Colic, Kidney Stones, [id number]. - Prescriptions for Ibuprofen 800 mg Oral Tablet - take 1 tablet by ORAL route every 8 hours As needed take with food; 30 tablet. Tylenol- Codeine #3 300-30 mg Oral Tablet - take 2 tablet by ORAL route every 6 hours As needed; 30 tablet. Zofran 4 mg Oral Tablet - take 1 tablet by ORAL route every 12 hours As needed; 6 tablet. Flomax 0.4 mg Oral Capsule, Sust. Release 24 hr - take 1 capsule by ORAL route once daily 1/2 hour following the same meal each day; 30 capsule. - Medication Reconciliation Form, Thank You Letter, Antibiotic Education, Prescription Opioid Use form. - Follow up: Private Physician; When: Upon discharge from the Emergency Department; Reason: Recheck today's complaints, Continuance of care, Re-evaluation by your physician. - Problem is new. - Symptoms have improved. Signatures: Dispatcher [employer] Ellen Salas RN RN ea Wadley, Terrence, MD MD tw4 Ugo Berrios RN sg Corrections: (The following items were deleted from the chart) 04:29 04:11 07/06/2019 04:11 Discharged to Home. Impression: Calculus of ureter. Condition is ea Stable. Forms are Medication Reconciliation Form, Thank You Letter, Antibiotic Education, Prescription Opioid Use. Follow up: Private Physician; When: Upon discharge from the Emergency Department; Reason: Recheck today's complaints, Continuance of care, Re-evaluation by your physician. Problem is new. Symptoms have improved. tw4
[2019-07-06] MEDS ORDERED: TAMSULOSIN 0.4 MG SR CAP ONE (04:21)
[2019-07-06 04:36] VITALS: BP 140/90; TEMP 97.6; O2SAT 100
--- NOTE | 2019-07-06 09:00 | RAD REPORT ---
EXAM DESCRIPTION: Stone Protocol CLINICAL HISTORY: FLANK PAIN COMPARISON: None. TECHNIQUE: CT ABDOMEN PELVIS WITHOUT IV CONTRAST on 07/06/2019 2:42 AM CDT This exam was performed according to our departmental dose-optimization program, which includes autom ated exposure control, adjustment of the mA and/or kV according to patient size and/or use of iterati ve reconstruction technique. FINDINGS: Lower lungs are clear. Abdomen: There is a small cyst in the left lobe of the liver. There is no biliary dilatation. Gallbla dder is normal in appearance. There is a small hiatal hernia. The pancreas and spleen are normal in a ppearance. Adrenal glands are normal. There are two mid pole left renal calculi measuring up to 7 mm. Right kidney contains at least four calculi measuring up to 4 mm. There is mild right hydronephrosis secondary to a mid right ureteral calculus measuring 4 mm. There is no left hydronephrosis. Abdominal aorta is normal in course and caliber without aneurysm. There is no free air. There is no r etroperitoneal adenopathy.There is a tiny fat-containing umbilical hernia. Pelvis: There is no bowel obstruction. Urinary bladder is unremarkable. There is no free fluid. Prost ate has been removed. There are small fat-containing inguinal hernias. Appendix is normal. Skeleton: There are no acute osseous findings. No suspicious bony lesions. IMPRESSION: Bilateral nephrolithiasis with a mildly obstructing 4 mm mid right ureteral calculus. Electronically signed by: Alvarez Tierney MD 07/06/2019 3:20 AM CDT Due to temporary technical issues with the PACS/Fluency reporting system, reports are being signed by the in house radiologist as a courtesy to ensure prompt reporting. The interpreting radiologist is f ully responsible for the content of the report.
== END 2019-07-06 04:29 | disposition home or self-care (01) ==
LOC: ER 02:31
DX: N20.1 Calculus of ureter (principal); E78.00 Pure hypercholesterolemia, unspecified; Z85.46 Personal history of malignant neoplasm of prostate
CPT/HCPCS: 96361; 85025; 80048; 36415; 80076; 83690; 76377; 74176; 96375; 96374; 99284; J7030; J2405 ×2

== ENCOUNTER 2019-07-07 16:34 | Observation (INO) | payer BC ==
--- OUTSIDE RECORDS SUMMARY | 2019-07-07 16:38 | XMS REPORT ---
:1955 [facility] Address [address] [place] [address] Dr. Raines [address] [place] [id number] Care Team Providers Name Role Phone BEKA ROLLINSME Unavailable Unavailable PEPPER DUMONT Unavailable Unavailable TOSHIA [...] Comments SODIUM (BEAKER) (test 139 meq/L 136-145 xpwg=548) POTASSIUM (BEAKER) (test 4.2 meq/L 3.5-5.1 ctqf=860) CHLORIDE (BEAKER) (test 105 meq/L 98-107 iuep=642) CO2 (BEAKER) (test nybg=308) 25 meq/L 22-29 BLOOD UREA NITROGEN (BEAKER) 13 mg/dL 7-21 (test abtr=908) CREATININE (BEAKER) (test 0.98 mg/dL 0.57-1.25 zxob=636) GLUCOSE RANDOM (BEAKER) 92 mg/dL 70-105 (test rjpc=426) CALCIUM (BEAKER) (test 8.4 mg/dL 8.4-10.2 uxho=094) EGFR (BEAKER) (test 78 mL/min/1.73 sq m ESTIMATED GFR IS NOT xlxr=3433) ACCURATE CREATININE CLEARANCE IN PREDICTING GLOMERULAR FILTRATION RATE. ESTIMATED GFR IS NOT APPLICABLE FOR DIALYSIS PATIENTS. PROTHROMBIN TIME/[id number] 04:37:00 Test Item Value Reference Range Comments PROTIME (BEAKER) (test kgjo=143) 21.5 seconds 11.7-14.7 INR (BEAKER) (test dugn=175) 1.9 <=5.9 RECOMMENDED COUMADIN/WARFARIN INR THERAPY RANGESSTANDARD DOSE: 2.0 - 3.0 Includes: PROPHYLAXIS forvenous thrombosis, systemic embolization; TREATMENT for venous thrombosis and/or pulmonary embolus.HIGH RISK: Target INR is 2.5-3.5 for patients with mechanical heart valves.While on warfarin.CBC W/PLT COUNT &amp ; AUTO [id number] 04:30:00 Test Item Value Reference Range Comments WHITE BLOOD CELL COUNT (BEAKER) (test ding=893) 7.7 K/ L 3.5-10.5 RED BLOOD CELL COUNT (BEAKER) (test ritk=364) 3.23 M/ L 4.63-6.08 HEMOGLOBIN (BEAKER) (test lfos=249) 9.2 GM/DL 13.7-17.5 HEMATOCRIT (BEAKER) (test xgwx=285) 29.6 % 40.1-51.0 MEAN CORPUSCULAR VOLUME (BEAKER) (test uwor=363) 91.6 fL 79.0-92.2 MEAN CORPUSCULAR HEMOGLOBIN (BEAKER) (test 28.5 pg 25.7-32.2 olsu=782) MEAN CORPUSCULAR HEMOGLOBIN CONC (BEAKER) (test 31.1 GM/DL 32.3-36.5 zebn=186) RED CELL DISTRIBUTION WIDTH (BEAKER) (test 13.5 % 11.6-14.4 htyl=618) PLATELET COUNT (BEAKER) (test osra=521) 357 K/CU MM 150-450 MEAN PLATELET VOLUME (BEAKER) (test ewin=719) 9.4 fL 9.4-12.4 NUCLEATED RED BLOOD CELLS (BEAKER) (test 0 /100 WBC 0-0 bqck=810) NEUTROPHILS RELATIVE PERCENT (BEAKER) (test 66 % njxq=717) LYMPHOCYTES RELATIVE PERCENT (BEAKER) (test 18 % dkzg=174) MONOCYTES RELATIVE PERCENT (BEAKER) (test 11 % hzbe=708) EOSINOPHILS RELATIVE PERCENT (BEAKER) (test 3 % opbp=243) BASOPHILS RELATIVE PERCENT (BEAKER) (test 1 % rgwi=585) NEUTROPHILS ABSOLUTE COUNT (BEAKER) (test 5.05 K/ L 1.78-5.38 zvfg=596) LYMPHOCYTES ABSOLUTE COUNT (BEAKER) (test 1.40 K/ L 1.32-3.57 hnho=102) MONOCYTES ABSOLUTE COUNT (BEAKER) (test 0.85 K/ L 0.30-0.82 zztr=059) EOSINOPHILS ABSOLUTE COUNT (BEAKER) (test 0.20 K/ L 0.04-0.54 aozz=758) BASOPHILS ABSOLUTE COUNT (BEAKER) (test 0.06 K/ L 0.01-0.08 rpwf=792) IMMATURE GRANULOCYTES-RELATIVE PERCENT (BEAKER) 1 % 0-1 (test odah=8193) BASIC METABOLIC [id number] 05:51:00 Test Item Value Reference Range Comments SODIUM (BEAKER) (test 139 meq/L 136-145 hgps=737) POTASSIUM (BEAKER) (test 4.0 meq/L 3.5-5.1 ftpp=446) CHLORIDE (BEAKER) (test 108 meq/L 98-107 ieqr=123) CO2 (BEAKER) (test 23 meq/L 22-29 wuwg=924) BLOOD UREA NITROGEN 10 mg/dL 7-21 (BEAKER) (test zbri=534) CREATININE (BEAKER) (test 0.87 mg/dL 0.57-1.25 edbn=293) GLUCOSE RANDOM (BEAKER) 96 mg/dL 70-105 (test uovn=487) CALCIUM (BEAKER) (test 8.1 mg/dL 8.4-10.2 opgn=329) EGFR (BEAKER) (test 89 mL/min/1.73 sq m ESTIMATED GFR IS NOT ihab=3764) ACCURATE CREATININE CLEARANCE IN PREDICTING GLOMERULAR FILTRATION RATE. ESTIMATED GFR IS NOT APPLICABLE FOR DIALYSIS PATIENTS. PROTHROMBIN TIME/[id number] 05:33:00 Test Item Value Reference Range Comments PROTIME (BEAKER) (test arbw=989) 18.4 seconds 11.7-14.7 INR (BEAKER) (test qykz=761) 1.5 <=5.9 RECOMMENDED COUMADIN/WARFARIN INR THERAPY RANGESSTANDARD DOSE: 2.0 - 3.0 Includes: PROPHYLAXIS forvenous thrombosis, systemic embolization; TREATMENT for venous thrombosis and/or pulmonary embolus.HIGH RISK: Target INR is 2.5-3.5 for patients with mechanical heart valves.While on warfarin.CBC W/PLT COUNT &amp ; AUTO [id number] 05:28:00 Test Item Value Reference Range Comments WHITE BLOOD CELL COUNT (BEAKER) (test jngt=705) 6.6 K/ L 3.5-10.5 RED BLOOD CELL COUNT (BEAKER) (test ijbg=344) 2.96 M/ L 4.63-6.08 HEMOGLOBIN (BEAKER) (test ktlv=835) 8.5 GM/DL 13.7-17.5 HEMATOCRIT (BEAKER) (test nqyc=804) 26.9 % 40.1-51.0 MEAN CORPUSCULAR VOLUME (BEAKER) (test sgte=798) 90.9 fL 79.0-92.2 MEAN CORPUSCULAR HEMOGLOBIN (BEAKER) (test 28.7 pg 25.7-32.2 iutg=556) MEAN CORPUSCULAR HEMOGLOBIN CONC (BEAKER) (test 31.6 GM/DL 32.3-36.5 oiyf=942) RED CELL DISTRIBUTION WIDTH (BEAKER) (test 13.8 % 11.6-14.4 vzkr=186) PLATELET COUNT (BEAKER) (test qfpr=241) 342 K/CU MM 150-450 MEAN PLATELET VOLUME (BEAKER) (test dkop=494) 9.1 fL 9.4-12.4 NUCLEATED RED BLOOD CELLS (BEAKER) (test 0 /100 WBC 0-0 qaio=879) NEUTROPHILS RELATIVE PERCENT (BEAKER) (test 64 % jrvy=775) LYMPHOCYTES RELATIVE PERCENT (BEAKER) (test 19 % cgfk=676) MONOCYTES RELATIVE PERCENT (BEAKER) (test 12 % sdex=075) EOSINOPHILS RELATIVE PERCENT (BEAKER) (test 3 % gvtd=420) BASOPHILS RELATIVE PERCENT (BEAKER) (test 1 % wfyo=638) NEUTROPHILS ABSOLUTE COUNT (BEAKER) (test 4.24 K/ L 1.78-5.38 vdos=688) LYMPHOCYTES ABSOLUTE COUNT (BEAKER) (test 1.25 K/ L 1.32-3.57 paps=193) MONOCYTES ABSOLUTE COUNT (BEAKER) (test 0.78 K/ L 0.30-0.82 pniy=730) EOSINOPHILS ABSOLUTE COUNT (BEAKER) (test 0.20 K/ L 0.04-0.54 caiq=161) BASOPHILS ABSOLUTE COUNT (BEAKER) (test 0.07 K/ L 0.01-0.08 ioto=708) IMMATURE GRANULOCYTES-RELATIVE PERCENT (BEAKER) 1 % 0-1 (test prim=6384) PROTHROMBIN [id number] 08:49:00 Test Item Value Reference Range Comments PROTIME (BEAKER) (test rnut=966) 14.6 seconds 11.7-14.7 INR (BEAKER) (test hkxh=422) 1.1 <=5.9 RECOMMENDED COUMADIN/WARFARIN INR THERAPY RANGESSTANDARD DOSE: 2.0 - 3.0 Includes: PROPHYLAXIS forvenous thrombosis, systemic embolization; TREATMENT for venous thrombosis and/or pulmonary embolus.HIGH RISK: Target INR is 2.5-3.5 for patients with mechanical heart valves.While on warfarin.[id number] 05:23:00 Test Item Value Reference Range Comments MAGNESIUM (BEAKER) (test jzae=664) 2.0 mg/dL 1.6-2.6 BASIC METABOLIC [id number] 05:23:00 Test Item Value Reference Range Comments SODIUM (BEAKER) (test 138 meq/L 136-145 vhvr=206) POTASSIUM (BEAKER) (test 3.8 meq/L 3.5-5.1 wcwf=812) CHLORIDE (BEAKER) (test 106 meq/L 98-107 wrze=558) CO2 (BEAKER) (test 24 meq/L 22-29 beyi=137) BLOOD UREA NITROGEN 11 mg/dL 7-21 (BEAKER) (test uoqy=312) CREATININE (BEAKER) (test 0.85 mg/dL 0.57-1.25 xwmw=533) GLUCOSE RANDOM (BEAKER) 99 mg/dL 70-105 (test ujtn=844) CALCIUM (BEAKER) (test 8.2 mg/dL 8.4-10.2 hjfg=978) EGFR (BEAKER) (test 92 mL/min/1.73 sq m ESTIMATED GFR IS NOT nnjm=3520) ACCURATE CREATININE CLEARANCE IN PREDICTING GLOMERULAR FILTRATION RATE. ESTIMATED GFR IS NOT APPLICABLE FOR DIALYSIS PATIENTS. [id number] 05:22:00 Test Item Value Reference Range Comments PHOSPHORUS (BEAKER) (test goru=888) 3.6 mg/dL 2.3-4.7 CBC W/PLT COUNT & AUTO [id number] 05:01:00 Test Item Value Reference Range Comments WHITE BLOOD CELL COUNT (BEAKER) (test bzec=463) 6.5 K/ L 3.5-10.5 RED BLOOD CELL COUNT (BEAKER) (test bsdw=073) 2.92 M/ L 4.63-6.08 HEMOGLOBIN (BEAKER) (test ccsb=105) 8.3 GM/DL 13.7-17.5 HEMATOCRIT (BEAKER) (test evyh=261) 26.7 % 40.1-51.0 MEAN CORPUSCULAR VOLUME (BEAKER) (test tsft=071) 91.4 fL 79.0-92.2 MEAN CORPUSCULAR HEMOGLOBIN (BEAKER) (test 28.4 pg 25.7-32.2 vkky=710) MEAN CORPUSCULAR HEMOGLOBIN CONC (BEAKER) (test 31.1 GM/DL 32.3-36.5 erff=144) RED CELL DISTRIBUTION WIDTH (BEAKER) (test 13.6 % 11.6-14.4 ofqu=077) PLATELET COUNT (BEAKER) (test ljor=500) 328 K/CU MM 150-450 MEAN PLATELET VOLUME (BEAKER) (test kggf=514) 9.0 fL 9.4-12.4 NUCLEATED RED BLOOD CELLS (BEAKER) (test 0 /100 WBC 0-0 nnpz=742) NEUTROPHILS RELATIVE PERCENT (BEAKER) (test 66 % bwuu=790) LYMPHOCYTES RELATIVE PERCENT (BEAKER) (test 17 % okgt=505) MONOCYTES RELATIVE PERCENT (BEAKER) (test 11 % zedd=503) EOSINOPHILS RELATIVE PERCENT (BEAKER) (test 4 % wwxq=225) BASOPHILS RELATIVE PERCENT (BEAKER) (test 1 % pljh=104) NEUTROPHILS ABSOLUTE COUNT (BEAKER) (test 4.27 K/ L 1.78-5.38 ydnq=385) LYMPHOCYTES ABSOLUTE COUNT (BEAKER) (test 1.13 K/ L 1.32-3.57 kxum=217) MONOCYTES ABSOLUTE COUNT (BEAKER) (test 0.73 K/ L 0.30-0.82 lhnb=410) EOSINOPHILS ABSOLUTE COUNT (BEAKER) (test 0.24 K/ L 0.04-0.54 fgbk=217) BASOPHILS ABSOLUTE COUNT (BEAKER) (test 0.06 K/ L 0.01-0.08 gnjg=477) IMMATURE GRANULOCYTES-RELATIVE PERCENT (BEAKER) 1 % 0-1 (test mnvd=9499) URINE [id number] 12:18:00 Test Item Value Reference Range Comments CULTURE (BEAKER) (test jofb=9845) No growth [id number] 06:26:00 Test Item Value Reference Range Comments PHOSPHORUS (BEAKER) (test jjcc=910) 4.1 mg/dL 2.3-4.7 [id number] 06:26:00 Test Item Value Reference Range Comments MAGNESIUM (BEAKER) (test kzbi=299) 2.0 mg/dL 1.6-2.6 BASIC METABOLIC [id number] 06:26:00 Test Item Value Reference Range Comments SODIUM (BEAKER) (test 140 meq/L 136-145 tbia=277) POTASSIUM (BEAKER) (test 3.9 meq/L 3.5-5.1 bcdg=642) CHLORIDE (BEAKER) (test 107 meq/L 98-107 uutw=871) CO2 (BEAKER) (test 25 meq/L 22-29 xilp=099) BLOOD UREA NITROGEN 9 mg/dL 7-21 (BEAKER) (test yhwa=077) CREATININE (BEAKER) (test 0.91 mg/dL 0.57-1.25 fzgc=942) GLUCOSE RANDOM (BEAKER) 93 mg/dL 70-105 (test gqwm=153) CALCIUM (BEAKER) (test 8.2 mg/dL 8.4-10.2 ebxh=184) EGFR (BEAKER) (test 85 mL/min/1.73 sq m ESTIMATED GFR IS NOT euru=8551) ACCURATE CREATININE CLEARANCE IN PREDICTING GLOMERULAR FILTRATION RATE. ESTIMATED GFR IS NOT APPLICABLE FOR DIALYSIS PATIENTS. CBC W/PLT COUNT & AUTO [id number] 05:37:00 Test Item Value Reference Range Comments WHITE BLOOD CELL COUNT (BEAKER) (test cilv=481) 7.2 K/ L 3.5-10.5 RED BLOOD CELL COUNT (BEAKER) (test dfyx=276) 2.76 M/ L 4.63-6.08 HEMOGLOBIN (BEAKER) (test bfmj=467) 7.8 GM/DL 13.7-17.5 HEMATOCRIT (BEAKER) (test xicy=520) 25.6 % 40.1-51.0 MEAN CORPUSCULAR VOLUME (BEAKER) (test ceyj=643) 92.8 fL 79.0-92.2 MEAN CORPUSCULAR HEMOGLOBIN (BEAKER) (test 28.3 pg 25.7-32.2 bdog=764) MEAN CORPUSCULAR HEMOGLOBIN CONC (BEAKER) (test 30.5 GM/DL 32.3-36.5 wvts=877) RED CELL DISTRIBUTION WIDTH (BEAKER) (test 13.8 % 11.6-14.4 rifm=379) PLATELET COUNT (BEAKER) (test hgir=147) 314 K/CU MM 150-450 MEAN PLATELET VOLUME (BEAKER) (test ftsv=310) 9.6 fL 9.4-12.4 NUCLEATED RED BLOOD CELLS (BEAKER) (test 0 /100 WBC 0-0 hsiz=530) NEUTROPHILS RELATIVE PERCENT (BEAKER) (test 68 % ztfu=222) LYMPHOCYTES RELATIVE PERCENT (BEAKER) (test 15 % bouz=396) MONOCYTES RELATIVE PERCENT (BEAKER) (test 12 % liqk=535) EOSINOPHILS RELATIVE PERCENT (BEAKER) (test 3 % dzxu=324) BASOPHILS RELATIVE PERCENT (BEAKER) (test 1 % zzbv=326) NEUTROPHILS ABSOLUTE COUNT (BEAKER) (test 4.89 K/ L 1.78-5.38 kcyi=950) LYMPHOCYTES ABSOLUTE COUNT (BEAKER) (test 1.08 K/ L 1.32-3.57 ehjn=857) MONOCYTES ABSOLUTE COUNT (BEAKER) (test 0.84 K/ L 0.30-0.82 ddui=780) EOSINOPHILS ABSOLUTE COUNT (BEAKER) (test 0.20 K/ L 0.04-0.54 pnlp=321) BASOPHILS ABSOLUTE COUNT (BEAKER) (test 0.06 K/ L 0.01-0.08 xntg=493) IMMATURE GRANULOCYTES-RELATIVE PERCENT (BEAKER) 1 % 0-1 (test novq=3819) [id number] 06:02:00 Test Item Value Reference Range Comments PHOSPHORUS (BEAKER) (test wcmu=465) 3.9 mg/dL 2.3-4.7 [id number] 06:02:00 Test Item Value Reference Range Comments MAGNESIUM (BEAKER) (test pdzu=112) 2.0 mg/dL 1.6-2.6 BASIC METABOLIC [id number] 06:02:00 Test Item Value Reference Range Comments SODIUM (BEAKER) (test 137 meq/L 136-145 cgqa=931) POTASSIUM (BEAKER) (test 3.2 meq/L 3.5-5.1 zntw=274) CHLORIDE (BEAKER) (test 102 meq/L 98-107 xxal=012) CO2 (BEAKER) (test 25 meq/L 22-29 lfyi=369) BLOOD UREA NITROGEN 11 mg/dL 7-21 (BEAKER) (test fdsu=993) CREATININE (BEAKER) (test 0.87 mg/dL 0.57-1.25 zjwn=601) GLUCOSE RANDOM (BEAKER) 100 mg/dL 70-105 (test nmqb=504) CALCIUM (BEAKER) (test 8.0 mg/dL 8.4-10.2 poak=648) EGFR (BEAKER) (test 89 mL/min/1.73 sq m ESTIMATED GFR IS NOT rdvj=8222) ACCURATE CREATININE CLEARANCE IN PREDICTING GLOMERULAR FILTRATION RATE. ESTIMATED GFR IS NOT APPLICABLE FOR DIALYSIS PATIENTS. CBC W/PLT COUNT & AUTO [id number] 05:40:00 Test Item Value Reference Range Comments WHITE BLOOD CELL COUNT (BEAKER) (test stmb=926) 7.0 K/ L 3.5-10.5 RED BLOOD CELL COUNT (BEAKER) (test orfb=972) 2.73 M/ L 4.63-6.08 HEMOGLOBIN (BEAKER) (test comw=359) 8.0 GM/DL 13.7-17.5 HEMATOCRIT (BEAKER) (test fyit=049) 25.2 % 40.1-51.0 MEAN CORPUSCULAR VOLUME (BEAKER) (test zygu=707) 92.3 fL 79.0-92.2 MEAN CORPUSCULAR HEMOGLOBIN (BEAKER) (test 29.3 pg 25.7-32.2 ghyy=343) MEAN CORPUSCULAR HEMOGLOBIN CONC (BEAKER) (test 31.7 GM/DL 32.3-36.5 ymto=182) RED CELL DISTRIBUTION WIDTH (BEAKER) (test 13.7 % 11.6-14.4 wtge=696) PLATELET COUNT (BEAKER) (test bmay=582) 278 K/CU MM 150-450 MEAN PLATELET VOLUME (BEAKER) (test gido=632) 9.6 fL 9.4-12.4 NUCLEATED RED BLOOD CELLS (BEAKER) (test 0 /100 WBC 0-0 skwk=457) NEUTROPHILS RELATIVE PERCENT (BEAKER) (test 68 % wyhb=057) LYMPHOCYTES RELATIVE PERCENT (BEAKER) (test 16 % gtqv=817) MONOCYTES RELATIVE PERCENT (BEAKER) (test 12 % acjc=921) EOSINOPHILS RELATIVE PERCENT (BEAKER) (test 2 % errn=690) BASOPHILS RELATIVE PERCENT (BEAKER) (test 1 % cdft=937) NEUTROPHILS ABSOLUTE COUNT (BEAKER) (test 4.78 K/ L 1.78-5.38 yvjd=661) LYMPHOCYTES ABSOLUTE COUNT (BEAKER) (test 1.11 K/ L 1.32-3.57 racr=182) MONOCYTES ABSOLUTE COUNT (BEAKER) (test 0.84 K/ L 0.30-0.82 bthi=597) EOSINOPHILS ABSOLUTE COUNT (BEAKER) (test 0.17 K/ L 0.04-0.54 prao=947) BASOPHILS ABSOLUTE COUNT (BEAKER) (test 0.05 K/ L 0.01-0.08 rrri=072) IMMATURE GRANULOCYTES-RELATIVE PERCENT (BEAKER) 1 % 0-1 (test urck=8290) TISSUE [id number] 15:55:00Surgical Pathology Report Case: [id number] Authorizing Provider: Toshia Reyna MD Collected: 01/30/2017 1109 Ordering Location: [facility] Received: 01/30/2017 1242 SERVICES Pathologist: Nikolay [...] PATHOLOGIC DIAGNOSIS Signing Pathologist Direct Phone Line: [phone] signed by Nikolay García MD on 02/08/2017 [...] Histologic Type: Adenocarcinoma (acinar, not otherwise specified) Whitetail Pattern: Corby pattern Primary Pattern: Grade 3 Secondary Pattern: Grade 4 Tertiary Pattern: Not applicable Total Whitetail Score: 7 Tumor Quantitation: Proportion (percentage) of [...] Nodular prostatic hyperplasiaSPECIAL STUDIES Ancillary Studies: Not [id number], [id number] cancerA. Right pelvic lymph node; B. Left [...] ?/ewPerformedCT, CHEST WITH IV CONTRAST- PE TEST [id number] 10:37: 00FINAL REPORT CT of the chest, [...] 02/08/2017 10:37:56 Reading Location: [facility] B1 C013Y CT Body Reading Room RAD , CHEST, 1 VIEW, NON [id number] 08:47:00Reason for exam:->low satsShould this be performed [...] Verified Date/Time: 02/08/2017 08: 47:12 Reading Location: [facility] Radiology Reading Room URINALYSIS W/ [id number] 08:12:00 Test Item Value Reference Range Comments COLOR (BEAKER) (test etif=055) Red CLARITY (BEAKER) (test zpvt=520) Hazy SPECIFIC GRAVITY UA (BEAKER) (test eahx=764) 1.014 1.001-1.035 PH UA (BEAKER) (test sfnp=745) 6.5 5.0-8.0 PROTEIN UA (BEAKER) (test kbhh=516) 300 mg/dL Negative GLUCOSE UA (BEAKER) (test vrei=562) 30 mg/dL Negative KETONES UA (BEAKER) (test hcwq=616) Trace Negative BILIRUBIN UA (BEAKER) (test luml=519) Negative Negative BLOOD UA (BEAKER) (test fddl=320) Large Negative NITRITE UA (BEAKER) (test ilhd=182) Negative Negative LEUKOCYTE ESTERASE UA (BEAKER) (test mfez=425) Moderate Negative UROBILINOGEN UA (BEAKER) (test hccv=905) 0.2 mg/dL 0.2-1.0 RBC UA (BEAKER) (test qaqz=700) > /HPF WBC UA (BEAKER) (test fldp=434) 17 /HPF MUCUS (BEAKER) (test aqnt=3400) Moderate SOURCE(BEAKER) (test tvcl=7655) Urine, [place] BASIC METABOLIC [id number] 06:24:00 Test Item Value Reference Range Comments SODIUM (BEAKER) (test 133 meq/L 136-145 meco=663) POTASSIUM (BEAKER) (test 3.6 meq/L 3.5-5.1 ejmu=927) CHLORIDE (BEAKER) (test 98 meq/L 98-107 yhxz=277) CO2 (BEAKER) (test 25 meq/L 22-29 blax=381) BLOOD UREA NITROGEN 15 mg/dL 7-21 (BEAKER) (test mjfg=925) CREATININE (BEAKER) (test 0.88 mg/dL 0.57-1.25 vawi=243) GLUCOSE RANDOM (BEAKER) 103 mg/dL 70-105 (test pfti=342) CALCIUM (BEAKER) (test 8.6 mg/dL 8.4-10.2 xrgp=178) EGFR (BEAKER) (test 88 mL/min/1.73 sq m ESTIMATED GFR IS NOT gkez=3484) ACCURATE CREATININE CLEARANCE IN PREDICTING GLOMERULAR FILTRATION RATE. ESTIMATED GFR IS NOT APPLICABLE FOR DIALYSIS PATIENTS. PROTHROMBIN [id number] 06:06:00 Test Item Value Reference Range Comments PROTIME (BEAKER) (test jpkf=065) 15.4 seconds 11.7-14.7 INR (BEAKER) (test uupp=921) 1.2 <=5.9 RECOMMENDED COUMADIN/WARFARIN INR THERAPY RANGESSTANDARD DOSE: 2.0 - 3.0 Includes: PROPHYLAXIS forvenous thrombosis, systemic embolization; TREATMENT for venous thrombosis and/or pulmonary embolus.HIGH RISK: Target INR is 2.5-3.5 for patients with mechanical heart valves.CBC W/PLT COUNT & AUTO [id number] 05:56:00 Test Item Value Reference Range Comments WHITE BLOOD CELL COUNT (BEAKER) (test osld=665) 11.7 K/ L 3.5-10.5 RED BLOOD CELL COUNT (BEAKER) (test sgas=901) 2.74 M/ L 4.63-6.08 HEMOGLOBIN (BEAKER) (test vfwd=679) 8.3 GM/DL 13.7-17.5 HEMATOCRIT (BEAKER) (test kwzl=757) 25.1 % 40.1-51.0 MEAN CORPUSCULAR VOLUME (BEAKER) (test cgjn=814) 91.6 fL 79.0-92.2 MEAN CORPUSCULAR HEMOGLOBIN (BEAKER) (test 30.3 pg 25.7-32.2 qudx=738) MEAN CORPUSCULAR HEMOGLOBIN CONC (BEAKER) (test 33.1 GM/DL 32.3-36.5 gkuf=312) RED CELL DISTRIBUTION WIDTH (BEAKER) (test 13.6 % 11.6-14.4 kpfb=842) PLATELET COUNT (BEAKER) (test kbey=075) 280 K/CU MM 150-450 MEAN PLATELET VOLUME (BEAKER) (test gqin=576) 9.2 fL 9.4-12.4 NUCLEATED RED BLOOD CELLS (BEAKER) (test 0 /100 WBC 0-0 pnwp=696) NEUTROPHILS RELATIVE PERCENT (BEAKER) (test 79 % itnj=224) LYMPHOCYTES RELATIVE PERCENT (BEAKER) (test 7 % rwyv=620) MONOCYTES RELATIVE PERCENT (BEAKER) (test 12 % saio=924) EOSINOPHILS RELATIVE PERCENT (BEAKER) (test 1 % hjhy=498) BASOPHILS RELATIVE PERCENT (BEAKER) (test 0 % spku=898) NEUTROPHILS ABSOLUTE COUNT (BEAKER) (test 9.16 K/ L 1.78-5.38 xexk=091) LYMPHOCYTES ABSOLUTE COUNT (BEAKER) (test 0.85 K/ L 1.32-3.57 hwtg=878) MONOCYTES ABSOLUTE COUNT (BEAKER) (test 1.43 K/ L 0.30-0.82 tnjx=813) EOSINOPHILS ABSOLUTE COUNT (BEAKER) (test 0.06 K/ L 0.04-0.54 rtgt=344) BASOPHILS ABSOLUTE COUNT (BEAKER) (test 0.05 K/ L 0.01-0.08 zomb=828) IMMATURE GRANULOCYTES-RELATIVE PERCENT (BEAKER) 1 % 0-1 (test wtec=3532) BASIC METABOLIC [id number] 05:58:00 Test Item Value Reference Range Comments SODIUM (BEAKER) (test 138 meq/L 136-145 olxd=377) POTASSIUM (BEAKER) (test 3.8 meq/L 3.5-5.1 fqlw=666) CHLORIDE (BEAKER) (test 107 meq/L 98-107 phuu=719) CO2 (BEAKER) (test 24 meq/L 22-29 trnj=493) BLOOD UREA NITROGEN 12 mg/dL 7-21 (BEAKER) (test nuuy=816) CREATININE (BEAKER) (test 0.72 mg/dL 0.57-1.25 sdwq=273) GLUCOSE RANDOM (BEAKER) 107 mg/dL 70-105 (test thqc=120) CALCIUM (BEAKER) (test 7.8 mg/dL 8.4-10.2 wcuh=628) EGFR (BEAKER) (test 111 mL/min/1.73 sq m ESTIMATED GFR IS NOT skrq=8383) ACCURATE CREATININE CLEARANCE IN PREDICTING GLOMERULAR FILTRATION RATE. ESTIMATED GFR IS NOT APPLICABLE FOR DIALYSIS PATIENTS. [id number] 05:56:00 Test Item Value Reference Range Comments PHOSPHORUS (BEAKER) (test alzn=628) 2.7 mg/dL 2.3-4.7 [id number] 05:56:00 Test Item Value Reference Range Comments MAGNESIUM (BEAKER) (test xnue=842) 1.8 mg/dL 1.6-2.6 CBC W/PLT COUNT & AUTO [id number] 05:20:00 Test Item Value Reference Range Comments WHITE BLOOD CELL COUNT (BEAKER) (test unde=941) 10.5 K/ L 3.5-10.5 RED BLOOD CELL COUNT (BEAKER) (test vroc=853) 3.03 M/ L 4.63-6.08 HEMOGLOBIN (BEAKER) (test bjab=169) 8.9 GM/DL 13.7-17.5 HEMATOCRIT (BEAKER) (test cecy=520) 27.8 % 40.1-51.0 MEAN CORPUSCULAR VOLUME (BEAKER) (test gmpj=400) 91.7 fL 79.0-92.2 MEAN CORPUSCULAR HEMOGLOBIN (BEAKER) (test 29.4 pg 25.7-32.2 itmd=835) MEAN CORPUSCULAR HEMOGLOBIN CONC (BEAKER) (test 32.0 GM/DL 32.3-36.5 hknj=495) RED CELL DISTRIBUTION WIDTH (BEAKER) (test 13.5 % 11.6-14.4 yyxz=439) PLATELET COUNT (BEAKER) (test qlzo=663) 149 K/CU MM 150-450 MEAN PLATELET VOLUME (BEAKER) (test amtn=443) 10.7 fL 9.4-12.4 NUCLEATED RED BLOOD CELLS (BEAKER) (test 0 /100 WBC 0-0 ltld=282) NEUTROPHILS RELATIVE PERCENT (BEAKER) (test 66 % bfsp=499) LYMPHOCYTES RELATIVE PERCENT (BEAKER) (test 18 % hwpa=150) MONOCYTES RELATIVE PERCENT (BEAKER) (test 13 % rfao=305) EOSINOPHILS RELATIVE PERCENT (BEAKER) (test 1 % jixl=413) BASOPHILS RELATIVE PERCENT (BEAKER) (test 1 % itjh=736) NEUTROPHILS ABSOLUTE COUNT (BEAKER) (test 6.96 K/ L 1.78-5.38 grkh=256) LYMPHOCYTES ABSOLUTE COUNT (BEAKER) (test 1.93 K/ L 1.32-3.57 xrpd=639) MONOCYTES ABSOLUTE COUNT (BEAKER) (test 1.36 K/ L 0.30-0.82 fczp=014) EOSINOPHILS ABSOLUTE COUNT (BEAKER) (test 0.12 K/ L 0.04-0.54 utsh=188) BASOPHILS ABSOLUTE COUNT (BEAKER) (test 0.05 K/ L 0.01-0.08 zzml=705) IMMATURE GRANULOCYTES-RELATIVE PERCENT (BEAKER) 1 % 0-1 (test pmga=3570) CREATININE, BODY [id number] 12:29:00 Test Item Value Reference Range Comments CREATININE FLUID (BEAKER) (test udaa=872) 0.66 mg/dL Reference Range: No Normals Assay performance has not been validated for this type of specimen.BASIC METABOLIC [id number] 05:56:00 Test Item Value Reference Range Comments SODIUM (BEAKER) (test 140 meq/L 136-145 krug=989) POTASSIUM (BEAKER) (test 3.6 meq/L 3.5-5.1 vkus=863) CHLORIDE (BEAKER) (test 110 meq/L 98-107 utrv=198) CO2 (BEAKER) (test 24 meq/L 22-29 edls=138) BLOOD UREA NITROGEN 10 mg/dL 7-21 (BEAKER) (test tyhy=502) CREATININE (BEAKER) (test 0.77 mg/dL 0.57-1.25 hwzo=868) GLUCOSE RANDOM (BEAKER) 96 mg/dL 70-105 (test txdx=821) CALCIUM (BEAKER) (test 7.3 mg/dL 8.4-10.2 npcd=093) EGFR (BEAKER) (test 103 mL/min/1.73 sq m ESTIMATED GFR IS NOT xkaj=3759) ACCURATE CREATININE CLEARANCE IN PREDICTING GLOMERULAR FILTRATION RATE. ESTIMATED GFR IS NOT APPLICABLE FOR DIALYSIS PATIENTS. [id number] 05:49:00 Test Item Value Reference Range Comments PHOSPHORUS (BEAKER) (test xfqr=125) 2.3 mg/dL 2.3-4.7 [id number] 05:49:00 Test Item Value Reference Range Comments MAGNESIUM (BEAKER) (test gyka=770) 1.9 mg/dL 1.6-2.6 HEMOGLOBIN AND [id number] 05:27:00 Test Item Value Reference Range Comments HEMOGLOBIN (BEAKER) (test mmav=248) 9.3 GM/DL 13.7-17.5 HEMATOCRIT (BEAKER) (test uciv=635) 28.4 % 40.1-51.0 BASIC METABOLIC [id number] 06:15:00 Test Item Value Reference Range Comments SODIUM (BEAKER) (test 139 meq/L 136-145 lrzy=450) POTASSIUM (BEAKER) (test 4.0 meq/L 3.5-5.1 fqch=254) CHLORIDE (BEAKER) (test 108 meq/L 98-107 wbmq=746) CO2 (BEAKER) (test 26 meq/L 22-29 adqk=775) BLOOD UREA NITROGEN 10 mg/dL 7-21 (BEAKER) (test cxmp=353) CREATININE (BEAKER) (test 0.80 mg/dL 0.57-1.25 hior=393) GLUCOSE RANDOM (BEAKER) 116 mg/dL 70-105 (test nfbn=863) CALCIUM (BEAKER) (test 7.8 mg/dL 8.4-10.2 dhew=586) EGFR (BEAKER) (test 98 mL/min/1.73 sq m ESTIMATED GFR IS NOT aoib=3344) ACCURATE CREATININE CLEARANCE IN PREDICTING GLOMERULAR FILTRATION RATE. ESTIMATED GFR IS NOT APPLICABLE FOR DIALYSIS PATIENTS. HEMOGLOBIN AND [id number] 05:44:00 Test Item Value Reference Range Comments HEMOGLOBIN (BEAKER) (test xeke=950) 10.1 GM/DL 13.7-17.5 HEMATOCRIT (BEAKER) (test bscc=576) 30.6 % 40.1-51.0 HEMOGLOBIN AND [id number] 17:17:00 Test Item Value Reference Range Comments HEMOGLOBIN (BEAKER) (test btvx=416) 10.4 GM/DL 13.7-17.5 HEMATOCRIT (BEAKER) (test bmds=810) 31.9 % 40.1-51.0 BASIC METABOLIC [id number] 16:43:00 Test Item Value Reference Range Comments SODIUM (BEAKER) (test 141 meq/L 136-145 ssjb=909) POTASSIUM (BEAKER) (test 3.5 meq/L 3.5-5.1 fsfu=941) CHLORIDE (BEAKER) (test 109 meq/L 98-107 iytd=274) CO2 (BEAKER) (test 21 meq/L 22-29 wgoi=130) BLOOD UREA NITROGEN 11 mg/dL 7-21 (BEAKER) (test stdp=853) CREATININE (BEAKER) (test 0.82 mg/dL 0.57-1.25 kfzg=255) GLUCOSE RANDOM (BEAKER) 174 mg/dL 70-105 (test qfgl=501) CALCIUM (BEAKER) (test 7.3 mg/dL 8.4-10.2 svrs=125) EGFR (BEAKER) (test 96 mL/min/1.73 sq m ESTIMATED GFR IS NOT slvp=[id number]) ACCURATE CREATININE CLEARANCE IN PREDICTING GLOMERULAR FILTRATION RATE. ESTIMATED GFR IS NOT APPLICABLE FOR DIALYSIS PATIENTS. Upon arrival to [facility], [id number] 12:37:00 Test Item Value Reference Range Comments CALCIUM IONIZED (BEAKER) (test fqgh=696) 1.04 mmol/L 1.12-1.27 PH, BLOOD (BEAKER) (test nqgd=1983) 7.37 BLOOD GAS, [id number] 12:36:00 Test Item Value Reference Range Comments PH ARTERIAL (BEAKER) (test mscz=011) 7.37 7.35-7.45 PCO2 ARTERIAL (BEAKER) (test iqub=682) 43 mmHg 35-45 PO2 ARTERIAL (BEAKER) (test tpdb=556) 173 mmHg 80-90 O2 SATURATION ARTERIAL (BEAKER) (test jzjt=801) 99.1 % 96.0-97.0 HCO3 ARTERIAL (BEAKER) (test ochn=428) 25 mmol/L 21-29 BASE EXCESS ARTERIAL (BEAKER) (test tcal=791) -0.9 mmol/L -2.0-3.0 PATIENT TEMPERATURE (BEAKER) (test bdyr=1521) 37.0 C FIO2 (BEAKER) (test sbhm=9006) 100.0 % GLUCOSE-STAT [id number] 12:36:00 Test Item Value Reference Range Comments GLUCOSE RANDOM (BEAKER) (test qcft=235) 114 mg/dL 70-110 SODIUM NA-STAT [id number] 12:28:00 Test Item Value Reference Range Comments SODIUM (BEAKER) (test nxjm=102) 139 meq/L 135-148 POTASSIUM-STAT [id number] 12:28:00 Test Item Value Reference Range Comments POTASSIUM (BEAKER) (test jpfa=384) 3.9 meq/L 3.6-5.5 HGB/HCT (H&H) - STAT [id number] 12:28:00 Test Item Value Reference Range Comments HEMOGLOBIN (BEAKER) (test fmmr=085) 13.8 g/dL 13.0-16.8 HEMATOCRIT (BEAKER) (test ptnc=307) 41.0 % 40.0-50.0 BASIC METABOLIC [id number] 09:59:00 Test Item Value Reference Range Comments SODIUM (BEAKER) (test 140 meq/L 136-145 kina=039) POTASSIUM (BEAKER) (test 4.2 meq/L 3.5-5.1 Specimen slightly kjlc=886) hemolyzed CHLORIDE (BEAKER) (test 107 meq/L 98-107 lqkx=699) CO2 (BEAKER) (test 24 meq/L 22-29 arak=474) BLOOD UREA NITROGEN 12 mg/dL 7-21 (BEAKER) (test beoy=697) CREATININE (BEAKER) (test 0.87 mg/dL 0.57-1.25 Specimen slightly fkmh=522) hemolyzed GLUCOSE RANDOM (BEAKER) 100 mg/dL 70-105 (test oxto=370) CALCIUM (BEAKER) (test 9.0 mg/dL 8.4-10.2 muel=176) EGFR (BEAKER) (test 89 mL/min/1.73 sq m ESTIMATED GFR IS NOT wksy=5836) ACCURATE CREATININE CLEARANCE IN PREDICTING GLOMERULAR FILTRATION RATE. ESTIMATED GFR IS NOT APPLICABLE FOR DIALYSIS PATIENTS. PROTHROMBIN [id number] 09:40:00 Test Item Value Reference Range Comments PROTIME (BEAKER) (test abdn=805) 14.2 seconds 11.7-14.7 INR (BEAKER) (test ujud=840) 1.1 <=5.9 RECOMMENDED COUMADIN/WARFARIN INR THERAPY RANGESSTANDARD DOSE: 2.0 - 3.0 Includes: PROPHYLAXIS forvenous thrombosis, systemic embolization; TREATMENT for venous thrombosis and/or pulmonary embolus.HIGH RISK: Target INR is 2.5-3.5 for patients with mechanical heart valves.[id number] 15:17:00 Test Item Value Reference Range Comments HEMOGLOBIN (BEAKER) (test xynp=042) 15.3 GM/DL 13.7-17.5
[2019-07-07] MEDS ORDERED: NA CHLORIDE 0.9% 1,000 ML IV ONE (17:45)
[2019-07-07] MEDS ORDERED: ONDANSETRON 4 MG/2 ML VIAL ONE (17:56)
[2019-07-07] MEDS: MORPHINE 2 MG/ML SYR IV PRN (17:56)
[2019-07-07] MEDS ORDERED: MORPHINE 2 MG/ML SYR ONE (17:56)
[2019-07-07] MEDS: ONDANSETRON 4 MG/2 ML VIAL IV PRN (17:58)
[2019-07-07] MEDS ORDERED: NA CHLORIDE 0.9% 1,000 ML ONE (18:10)
[2019-07-07] MEDS: FENTANYL CITR 100 MCG/2 ML IV PRN (18:23)
[2019-07-07 18:37] VITALS: BMI 32.8
[2019-07-07] MEDS: BISACODYL 10 MG RECTAL SUPP PR PRN (18:50)
[2019-07-07] MEDS: TAMSULOSIN 0.4 MG SR CAP PO SCH (18:51)
[2019-07-07] MEDS ORDERED: BISACODYL 10 MG RECTAL SUPP ONE (18:52)
[2019-07-07 19:00] LABS: Potassium 4.4 mmol/L (3.5-5.1)
[2019-07-07] MEDS: NA CHLORIDE 0.9% 1,000 ML IV SCH (19:00)
[2019-07-07] MEDS: KETOROLAC 30 MG/ML INJ IV PRN (19:11)
[2019-07-07 19:12] LABS: Absolute Lymphocytes (CBC) 1.2 K/uL (0.7-4.9); Basophils % 0.4 % (0-1.3); Hematocrit 45.6 % (39.6-49.0); Lymphocytes % 9.9 % (15.3-44.8); MPV 9.9 fL (7.6-11.3); RBC Red Blood Cell Count 5.13 M/uL (4.33-5.43)
[2019-07-08 02:32] LABS: Urine Appearance CLEAR; Urine Bilirubin NEGATIVE (NEG); Urine Blood TRACE (NEG); Urine Color YELLOW; Urine Glucose NEGATIVE (NEG); Urine Protein NEGATIVE (NEG); Urine Specific Gravity 1.015 (1.005-1.030); Urine Urobilinogen 0.2 mg/dL (0.2-1.0)
[2019-07-08 02:34] LABS: Urine Microscopic Reflex ORDER UMIC
[2019-07-08] MEDS: ONDANSETRON 4 MG/2 ML VIAL IV PRN ×2 (02:48→19:26)
[2019-07-08] MEDS: NA CHLORIDE 0.9% 1,000 ML IV SCH ×2 (02:49→10:43)
[2019-07-08] MEDS: KETOROLAC 30 MG/ML INJ IV PRN ×2 (02:49→20:49)
[2019-07-08 02:50] LABS: Urine Bacteria <20 /HPF (NONE SEEN); Urine Culture Reflex Order NOT NEEDED; Urine RBC <5 /HPF (NONE SEEN)
[2019-07-08] MEDS ORDERED: KETOROLAC 30 MG/ML INJ ONE (02:50)
[2019-07-08] MEDS ORDERED: NA CHLORIDE 0.9% 1,000 ML ONE (02:50)
[2019-07-08] MEDS ORDERED: ONDANSETRON 4 MG/2 ML VIAL ONE (02:50)
--- NOTE | 2019-07-08 05:39 | ER ---
Nurse's Notes [facility] Name: Christ Mesa Age: 64 yrs Sex: Male : 1955 Arrival Date: 07/07/2019 Time: 16:38 Bed Direct Admit Private MD: Luis Gaston Diagnosis: Acute pain, not elsewhere classified Presentation: 07/06 16:42 Chief complaint: Patient states: Was in the ER early Saturday morning for kidney stone. ca1 CT done and found 4 kidney stones on the R side. Seen doctor Marilin today and was sent here for direct admit. Reports abdominal pain and R flank pain, last BM Saturday noon, nausea. Denies vomiting. Coronavirus screen: The patient has NOT traveled to a country currently being monitored by the CDC within the last 14 days. The patient has NOT had contact with any known and/or suspected case of coronavirus. Ebola Screen: Patient negative for fever greater than or equal to 101.5 degrees Fahrenheit, and additional compatible Ebola Virus Disease symptoms Patient denies exposure to infectious person. Patient denies travel to an Ebola-affected area in the 21 days before illness onset. No symptoms or risks identified at this time. Initial Sepsis Screen: Does the patient meet any 2 criteria? No. Patient's initial sepsis screen is negative. Does the patient have a suspected source of infection? No. Patient's initial sepsis screen is negative. Risk Assessment: Do you want to hurt yourself or someone else? Patient reports no desire to harm self or others. Onset of symptoms was July 07, 2019. 16:42 Method Of Arrival: Ambulatory ca1 16:42 Acuity: CASEY 3 ca1 Triage Assessment: 07/07 02:00 General: Appears in no apparent distress. Behavior is calm, cooperative, appropriate wh for age. Pain: Denies pain. Historical: - Allergies: 07/06 16:48 No Known Allergies; ca1 - PMHx: 16:48 High Cholesterol; PROSTATE CA; ca1 - PSHx: 16:48 prostatectomy; laser prostate treatment; jaw surg; ca1 - Immunization history:: Adult Immunizations up to date, Pneumococcal vaccine is not up to date, Flu vaccine is not up to date. - Social history:: Smoking status: Patient denies any tobacco usage or history of. Screenin/18 02:00 Abuse screen: Denies threats or abuse. Denies injuries from another. Nutritional screening: No deficits noted. Tuberculosis screening: No symptoms or risk factors identified. Fall Risk None identified. Vital Signs: 07/06 16:42 BP 149 / 86; Pulse 63; Resp 17 S; Temp 97.1(TE); Pulse Ox 98% on R/A; Weight 106.59 kg ca1 (R); Height 5 ft. 11 in. (180.34 cm) (R); Pain 9/10; 16:42 Body Mass Index 32.78 (106.59 kg, 180.34 cm) ca1 ED Course: 16:38 Patient arrived in ED. rg4 16:38 Luis Gaston MD is Private Physician. rg4 16:48 Triage completed. [facility] 16:48 Arm band placed on right wrist. [facility] 07/07 02:00 Patient has correct armband on for positive identification. Bed in low position. Call light in reach. Side rails up X 1. Pulse ox on. NIBP on. 02:00 No provider procedures requiring assistance completed. Patient admitted, IV remains in place. 05:37 Luis Gaston MD is Hospitalizing Provider. mw 08:41 Luis Gaston MD is Attending Physician. jl7 Administered Medications: No medications were administered Outcome: 07/06 16:40 Admitted to ER Hold. Please see [facility] for further documentation. 07/07 02:00 Condition: stable 05:38 Decision to Hospitalize by Provider. mw 08:42 Patient left the ED. jl7 Signatures: Denise Cochran RN RN Gabbie Carpenter RN RN Romina Nunez 4 Pete Harper RN RN jl Christine Kohli Amber Gomez RN RN [facility]
[2019-07-08] MEDS ORDERED: INFLUENZA VACCINE (for 3y+) 0.5 ML DOSE IMVAC ONE (08:00)
[2019-07-08] MEDS: TAMSULOSIN 0.4 MG SR CAP PO SCH (08:58)
--- NOTE | 2019-07-08 09:36 | RAD REPORT ---
EXAM DESCRIPTION: RAD - Abdomen 1 View (KUB) - 07/08/2019 8:50 am CLINICAL HISTORY: Kidney Stone Pain COMPARISON: Stone Protocol dated 07/06/2019 FINDINGS: The bowel gas pattern is non-obstructive. No evidence of free air or pneumatosis. Small ca lcifications project over both kidneys. The patient's recently diagnosed right ureter stone is vaguel y visualized to the right of the right L4 transverse process.
[2019-07-08] MEDS: MORPHINE 2 MG/ML SYR IV PRN ×2 (10:39→16:35)
[2019-07-08] MEDS: BISACODYL 10 MG RECTAL SUPP PR PRN ×2 (11:30→20:49)
[2019-07-08 17:29] VITALS: BP 149/75; TEMP 98.5
[2019-07-08] MEDS: FENTANYL CITR 100 MCG/2 ML IV PRN (17:55)
--- NOTE | 2019-07-08 22:18 | HP ---
Date of Admission: 07/07/2019 Chief Complaint: Abdominal pain, difficulty urinating. History Of Present Illness: The patient had the above outlined symptoms approximately 48 hours. He started on gradually and increased so he had some CVA discomfort on that side as well and in the uppe r abdomen, seen in the emergency room. A diagnosis of renal colic was made with mild hydronephrosis. He went home on analgesics and as time progressed, the pain became increasingly more severe. He wa s seen in the office and felt he was dehydrated and would require pain management as well. He was th erefore admitted. Past History: Patient had a prostatectomy couple years ago, not had any renal colic, although he kne w at that time that he had some stones in the kidney. Otherwise, he has been in good general health for his age. Family History: Noncontributory. Social History: Nonsmoker, nondrinker. Physical Examination: General: Patient is a very uncomfortable male. Vital Signs: Stable. Head and neck: Normocephalic pupils equal and accommodation. Fundi negative. Trachea midline. Thy roid not palpable. ENT: Negative. Chest: Clear to P and A. Cardiovascular: PMI in midclavicular line. Heart: Heart sounds normal. Peripheral pulses are present and equal bilaterally. Abdomen: No organomegaly. Bowel sounds present. Slight tenderness, right CVA angle and right lower quadrant. No guarding, rebound, tenderness, or rigidity. Bowel sounds hypoactive. Extremities: Moderately dehydrated, good tone movement bilaterally. Reflexes physiologic. Rectal: Deferred. Impression: Renal colic with hydronephrosis, dehydration, moderate, pain management. Plan: Patient will be admitted, placed on IV fluids bolus and then IVs. Pain management will be ins tituted and Flomax as well and urology consultation will be obtained. HR/MODL Voice ID: [id number]
--- NOTE | 2019-07-08 22:18 | PN ---
Date of Progress Note: 07/08/2019 Subjective: Patient states he feels considerably better and he has responded fairly well to IV analg esics and still constipated. He feels that way, in any event he had a small bowel movement with Dulc olax. I discussed the case with his urologist in [place] and he will be kept in the hospital until 9 o'clock tonight then he will be discharged so he can be in his office early in the a.m. for admissio n and probable procedure. In the meantime, we will continue with the IV fluids. He does have some p ain pills at home. HR/MODL Voice ID: [id number] Report ID: [id number]
[2019-07-09 01:36] VITALS: O2SAT 97
== END 2019-07-08 21:00 | disposition home or self-care (01) ==
LOC: ER 16:34 → ERHOLD 16:36 → 2ND 07-08 08:02
PROVIDERS: ADMIT Family Medicine; ATTEND Family Medicine
DX: N13.2 Hydronephrosis with renal and ureteral calculous obstruction (principal); E86.0 Dehydration; K59.00 Constipation, unspecified; Z85.46 Personal history of malignant neoplasm of prostate; Z90.79 Acquired absence of other genital organ(s)
CPT/HCPCS: 85025; 80048; 36415 ×2; 82565; 74018; 99285; J3010 ×2; J2270 ×3; J7030 ×3; J2405 ×4; G0378 ×3; 81003; 81015

== ENCOUNTER 2021-06-16 19:14 | Emergency (ER) | payer OTHER ==
--- OUTSIDE RECORDS SUMMARY | 2021-06-16 19:18 | XMS REPORT | Continuity of Care Document ---
:1955 Author Organization [facility] t Address [address] [place] [address] Care Team Providers Name Role Phone RATNA Attending Clinician Unavailable Doctor Unassigned, Name Attending Clinician Unavailable Axel ANTONY P Attending Clinician RIA Attending Clinician Unavailable CATALINA DUMONT Attending Clinician Unavailable GAYATHRI MARQUEZ Attending Clinician Unavailable RIA Admitting Clinician Unavailable CATALINA DUMONT Admitting Clinician Unavailable GAYATHRI MARQUEZ Admitting Clinician Unavailable Payers Payer Name Policy Type Policy Number Effective Date Expiration Date S [facility] MEDICARE PART A \\T\\ [id number] 2020 B 00:00:00 BCBS TRADITIONAL [id number] 2020 00:00:00 Problems Condition Condition Condition Status Onset Resolution Last Treating Co mments Source Name Details Category Date Date Treatment Clinician Date Nephrolith Nephrolith Disease Active B [facility] iasis iasis 3-20 College 00:00: of 00 Medicin e Ureteral Ureteral Disease Active [place] stone 3-19 [facility] 00:00: of 00 Medicin e Erectile Erectile Disease Active [place] dysfunctio dysfunctio 6-27 Co llege n n 00:00: of following following 00 Medi petra radical radical e prostatect prostatect angel luis angel luis JAZLYN JAZLYN Disease Active 2016-04 [facility] (stress (stress 2-26 College urinary urinary 00:00: of incontinen incontinen 00 Me dicin ce), male ce), male e Pulmonary Pulmonary Disease Active 2016-04 [place] embolism embolism 0-21 Colleg e (HCCode) (HCCode) 00:00: of 00 Medicin e Villafuerte Villafuerte Disease Active 2016-04 [facility] catheter catheter 0-14 Colleg e problem, problem, 00:00: of initial initial 00 Medicin encounter encounter e (HCCode) (HCCode) Prostate Prostate Disease Active 2016-04 [facility] cancer cancer 0-11 [facility] 00:00: of 00 Medicin e Abnormal Abnormal Disease Active [facility] EKG EKG 11-20 [place] 00:00: of 00 Medicin e Preoperati Preoperati Disease Active aynancy ve ve 11-20 [place] clearance clearance 00:00: of 00 Medicin e Routine Routine Disease Active [facility] adult adult 11-20 [place] [facility] 00:00: of maintenanc maintenanc 00 Me dicin e e e Hyperlipid Hyperlipid Disease Active [facility] emia emia 11-20 [place] 00:00: of 00 Medicin e Kidney Kidney Disease Active [facility] stone stone 11-20 [place] 00:00: of 00 Medicin e Erectile Erectile Disease Active [facility] dysfunctio dysfunctio 10-18 Hi llege n due to n due to 00:00: of arterial arterial 00 Medici n insufficie insufficie e ncy ncy Prostate Prostate Disease Active [facility] cancer cancer 10-18 [place] [facility] 00:00: of 00 Medicin e High High Disease Active [facility] cholestero cholestero Co llege l l of Medicin e Allergies, Adverse Reactions, Alerts Allergy Allergy Status Severity Reaction(s) Onset Inactive Treating Comm ents Source Name Type Date Date Clinician Levoflox Propensi Active Adverse [facility] r acin ty to 3-20 effect, College adverse 00:00: joint of reaction 00 pains Medicin s to e drug NO KNOWN Drug Active Univers ALLERGIE Class ity of S [facility] NO KNOWN Allergy Active [facility] ALLERGIE S LEVOFLOX Allergy Active [facility] ACIN Social History Social Habit Start Date Stop Date Quantity Comments Source Sex Assigned At [facility] Co llege of Medicine Exposure to Not sure [facility] Colleg e SARS-CoV-2 of Medicine (event) Alcohol intake 2020-02-11 2020-02-11 Current [facility] Col lege 00:00:00 00:00:00 non-drinker of of Medicin e alcohol (finding) Tobacco use and 2020-02-11 2020-02-11 Never used [facility] Co llege exposure 00:00:00 00:00:00 of Medicine Smoking Status Start Date Stop Date Source Unknown if ever smoked [facility] Never smoker [facility] o f Medicine Medications Ordered Filled Start Stop Current Ordering Indication Dosage Frequency Signature Comments Components Source Medication Medication Date Date Medication? Clinician (SIG) Name Name ibuprofen 2019-04- No 200mg Take 200 [facility] (MOTRIN) 0-22 10-22 mg by College 200 mg 15:40: 00:00 mouth. of tablet 16 :00 Medicin e ondansetron 2019-04- No 4mg Take 4 mg [facility] (ZOFRAN) 4 0-22 10-22 by mouth. Col lege MG tablet 15:40: 00:00 of 03 :00 Medicin e polyethylen 2019-04- No 17g Take 17 g Ramón e glycol 0-22 10-22 by mouth. Colle ge (GLYCOLAX) 15:40: 00:00 of 17 g packet 00 :00 Medicin e Tamsulosin 2019- 2020- No [id number] .4mg Take 0.4 [facility] HCl 5-12 10-22 mg by [place] (FLOMAX) 00:00: 00:00 mouth of 0.4 MG CAPS 00 :00 daily for Med icin 360 days. e Tamsulosin 2019-0 Yes [id number] TAKE 1 [facility]ón HCl 0.4 MG 5-11 CAPSULE BY Col lege CAPS 00:00: MOUTH of 00 EVERY DAY Medicin e ibuprofen 2019-0 Yes 200mg Take 200 [place] (MOTRIN) 5-07 mg by [place] 200 mg 14:03: mouth. of tablet 25 Medicin e ondansetron 2020-0 Yes 4mg Take 4 mg [facility] (ZOFRAN) 4 5-07 by mouth. [place] MG tablet 14:03: of 25 Medicin e polyethylen 2020-0 Yes 17g Take 17 g [facility] e glycol 5-07 by mouth. Colleg e (GLYCOLAX) 14:03: of 17 g packet 25 Medicin e Tamsulosin 2020-0 Yes .4mg Take 0.4 [place] HCl 0.4 MG 5-07 mg by [place] CAPS 13:47: mouth. of 53 Medicin e ondansetron 2020-0 2020- No 4mg Take 4 mg [facility] (ZOFRAN) 4 5-07 05-07 by mouth [facility] MG tablet 13:42: 00:00 every 8 of 56 :00 hours as Medicin needed for e Nausea. acetaminoph 2020- No 1{tbl} Take 1 Tab [facility] en-codeine 5-07 05-07 by mouth [facility] (TYLENOL 13:42: 00:00 every 4 of #3) 300-30 49 :00 hours as Medic in MG per needed for e tablet Pain. ibuprofen 2019-0 2020- No 800mg Take 800 [facility] (MOTRIN) 5-07 05-07 mg by [place] 800 mg 13:42: 00:00 mouth of tablet 49 :00 every 8 Medicin hours as e needed for Pain. nitrofurant 2019-0 Yes TAKE 1 [facility] oin, 3-20 CAPSULE BY [place] macrocrysta 00:00: MOUTH of l-monohydra 00 TWICE A Medic in te, DAY FOR 3 e (MACROBID) DAYS 100 MG capsule nitrofurant 2019- No TAKE 1 [place] oin, 3-20 10-22 CAPSULE BY [place] macrocrysta 00:00: 00:00 MOUTH of l-monohydra 00 :00 TWICE A Medic in te, DAY FOR 3 e (MACROBID) DAYS 100 MG capsule acetaminoph 2019-0 Yes 1{tbl} Take 1 Tab [facility] en-codeine 3-19 by mouth Colle ge (TYLENOL 13:36: every 4 of #3) 300-30 37 hours as Medic in MG per needed for e tablet Pain. Tamsulosin 2019-0 Yes Take by [place] HCl 3-19 mouth. [place] (FLOMAX) 13:36: of 0.4 MG CAPS 37 Medicin e ibuprofen 2019-0 Yes 800mg Take 800 [place] (MOTRIN) 3-19 mg by [place] 800 mg 13:36: mouth of tablet 37 every 8 Medicin hours as e needed for Pain. ondansetron 2020-0 Yes 4mg Take 4 mg [facility] (ZOFRAN) 4 3-19 by mouth Colle ge MG tablet 13:36: every 8 of 37 hours as Medicin needed for e Nausea. tramadol 2019-0 Yes TAKE 1 [facility] (ULTRAM-ER) 3-19 TABLET BY Col lege 100 MG 00:00: MOUTH of tablet 00 EVERY 6 Medicin HOURS e NEEDED tramadol 2019- No TAKE 1 [facility] (ULTRAM-ER) 3-19 - TABLET BY Co llege 100 MG 00:00: 00:00 MOUTH of tablet 00 :00 EVERY 6 Medicin HOURS e NEEDED traMADol 2020- No [id number] 100mg Take 100 [facility] HCl 100 MG 3-19 05-07 mg by College TABS 00:00: 00:00 mouth of 00 :00 every 6 Medicin hours as e needed. rosuvastati Yes 20mg Take 20 mg [facility] n (CRESTOR) 3-17 by mouth. Col lege 20 MG 00:00: of tablet 00 Medicin e rosuvastati 2019- No 20mg Take 20 mg [facility] n (CRESTOR) 3-17 - by mouth. Co llege 20 MG 00:00: 00:00 of tablet 00 :00 Medicin e rosuvastati 2018-04 Yes TAKE 1 [facility] (CRESTOR) 0-16 TABLET BY Col lege 20 MG 00:00: MOUTH of tablet 00 EVERY DAY Medicin e rosuvastati 2018-04 Yes TAKE 1 [facility] (CRESTOR) 0-16 TABLET BY Col lege 20 MG 00:00: MOUTH of tablet 00 EVERY DAY Medicin e rosuvastati 2018-04 Yes TAKE 1 [facility] (CRESTOR) 0-16 TABLET BY Col lege 20 MG 00:00: MOUTH of tablet 00 EVERY DAY Medicin e rosuvastati 2018-04 Yes TAKE 1 [facility] (CRESTOR) 0-16 TABLET BY Col lege 20 MG 00:00: MOUTH of tablet 00 EVERY DAY Medicin e pravastatin 2018- No [facility] (PRAVACHOL) 5-11 02-12 College 40 MG 00:00: 00:00 of tablet 00 :00 Medicin e Vital Signs Vital Name Observation Time Observation Value Comments Source Systolic blood 2020-02-11 15:41:00 121 mm[Hg] [facility] of pressure Medicine Diastolic blood 2020-02-11 15:41:00 81 mm[Hg] [facility] of pressure Medicine Heart rate 2020-02-11 15:41:00 62 /min [facility] Body temperature 2020-02-11 15:41:00 36.56 Imelda [facility] Respiratory rate 2020-02-11 15:41:00 16 /min [facility] Body height 2020-02-11 15:41:00 177.8 cm [facility] Body weight 2020-02-11 15:41:00 103.42 kg [facility] BMI 2020-02-11 15:41:00 32.71 kg/m2 [facility] Systolic blood 2019-08-27 13:41:00 136 mm[Hg] [facility] pressure Medicine Diastolic blood 2019-08-27 13:41:00 92 mm[Hg] [facility] Medicine Heart rate 2019-08-27 13:41:00 68 /min [facility] Body temperature 2019-08-27 13:41:00 36.67 Imelda [facility] Body weight 2019-08-27 13:41:00 103.874 [facility] BMI 2019-08-27 13:41:00 31.94 kg/m2 [facility] Systolic blood 2019-07-09 13:29:00 149 mm[Hg] [facility] pressure Medicine Diastolic blood 2019-07-09 13:29:00 89 mm[Hg] [facility] Medicine Heart rate 2019-07-09 13:29:00 69 /min [facility] Body temperature 2019-07-09 13:29:00 37.22 Imelda [facility] Body height 2019-07-09 13:29:00 180.3 cm [facility] Body weight 2019-07-09 13:29:00 107.956 kg [facility] BMI 2019-07-09 13:29:00 33.19 [facility] Systolic blood 2019-02-12 14:59:00 136 mm[Hg] [facility] of pressure Medicine Diastolic blood 2019-02-12 14:59:00 96 mm[Hg] [facility] of pressure Medicine Heart rate 2019-02-12 14:59:00 76 /min [facility] Body temperature 2019-02-12 14:59:00 36.67 Imelda [facility] Body height 2019-02-12 14:59:00 177.8 cm [facility] Body weight 2019-02-12 14:59:00 106.595 kg [facility] BMI 2019-02-12 14:59:00 33.72 kg/m2 [facility] Procedures Procedure Date / Time Performed Performing Clinician Sour e POCT URINALYSIS 2020-02-11 00:00:00 Janusz Marquez [facility] ge of DIPSTICK Medicine POCT URINALYSIS 2019-08-27 00:00:00 Janusz Marquez [facility] ge of DIPSTICK Medicine POCT URINALYSIS 2019-07-09 00:00:00 Janusz Marquez [facility] ge of DIPSTICK Medicine Plan of Care Planned Activity Planned Date Details Comments Source Diagnostic Test 2019-02-26 PSA TOTAL(URO DEPT) Expected: [facility] Pending 00:00:00 [code = 2857-1] 02/26/2019 of Medicine (Approximate), Expires: 03/14/2019 Future Scheduled COLON CANCER [facility] ege Test SCREENING: of Medicine COLONOSCOPY [code = COLON CANCER SCREENING: COLONOSCOPY] Future Scheduled TETANUS SHOT [facility] ege Test (ADULT) [code = of Medicine TETANUS SHOT (ADULT)] Future Scheduled BMI FOLLOW UP PLAN [facility] Test [code = BMI FOLLOW of Medici ne UP PLAN] Future Scheduled HEPATITIS C [facility] ege Test SCREENING [code = of Medicin e HEPATITIS C SCREENING] Future Scheduled HIV SCREENING [code [facility] or [place] Test = HIV SCREENING] of Medicine Future Scheduled ZOSTER VACCINE (1 [facility] Test of 2) [code = of Medicine ZOSTER VACCINE (1 of 2)] Future Scheduled COLON CANCER [facility] ege Test SCREENING: of Medicine COLONOSCOPY [code = COLON CANCER SCREENING: COLONOSCOPY] Future Scheduled TETANUS SHOT [facility] ege Test (ADULT) [code = of Medicine TETANUS SHOT (ADULT)] Future Scheduled BMI FOLLOW UP PLAN [facility] Test [code = BMI FOLLOW of Medici ne UP PLAN] Future Scheduled HEPATITIS C [facility] ege Test SCREENING [code = of Medicin e HEPATITIS C SCREENING] Future Scheduled HIV SCREENING [code [facility] [place] Test = HIV SCREENING] of Medicine Future Scheduled FLU VACCINE > 6 [facility] C ollege Test MONTHS [code = FLU of Medici ne VACCINE > 6 MONTHS] Future Scheduled COLON CANCER [facility] Test SCREENING: of Medicine COLONOSCOPY [code = COLON CANCER SCREENING: COLONOSCOPY] Future Scheduled TETANUS SHOT [facility] Test (ADULT) [code = of Medicine TETANUS SHOT (ADULT)] Future Scheduled BMI FOLLOW UP PLAN [employer] Test [code = BMI FOLLOW of Medici ne UP PLAN] Future Scheduled HEPATITIS C [facility] Test SCREENING [code = of Medicin e HEPATITIS C SCREENING] Future Scheduled HIV SCREENING [code [facility] Test = HIV SCREENING] of Medicine Future Scheduled FLU VACCINE > 6 [facility] ollege Test MONTHS [code = FLU of Medici ne VACCINE > 6 MONTHS] Future Scheduled COLON CANCER [facility] Test SCREENING: of Medicine COLONOSCOPY [code = COLON CANCER SCREENING: COLONOSCOPY] Future Scheduled TETANUS SHOT [facility] Test (ADULT) [code = of Medicine TETANUS SHOT (ADULT)] Future Scheduled BMI FOLLOW UP PLAN [employer] Test [code = BMI FOLLOW of Medici ne UP PLAN] Future Scheduled HEPATITIS C [facility] Test SCREENING [code = of Medicin e HEPATITIS C SCREENING] Future Scheduled HIV SCREENING [code [facility] Test = HIV SCREENING] of Medicine Future Scheduled FLU VACCINE > 6 [facility] C ollege Test MONTHS [code = FLU of Medici ne VACCINE > 6 MONTHS] Encounters Start End Encounter Admission Attending Care Care Encounter Source Date/Time Date/Time Type Type Clinicians Facility Department ID 2020-05-05 2020-05-05 Outpatient R RATNA [facility] [id number] [facility] 17:00:00 17:00:00 BLAYNE cruz of [facility] 2020-05-05 2020-05-05 Letter Doctor BLAYNE [id number] Univers 00:00:00 00:00:00 (Out) Unassigned, BELLO 350.1.13.10 ity of [place] [facility] [id number] Chris as [id number] [address] 2020-02-11 2020-02-11 Office MARZENA Marquez [id number] [facility] 09:51:14 10:06:14 Visit Janusz Martinez AMBULATOR 350.1.13.21 College Y 0.2.7.2.686 of [id number] Medi petra 300 e 2019-08-27 2019-08-27 Office Axel JOURDANEnma [id number] [facility] 08:18:47 08:33:47 Visit Janusz P AMBULATOR 350.1.13.21 College Y 0.2.7.2.686 of [id number] [facility] petra 300 e 2019-07-10 2019-07-10 Outpatient [facility] [id number] SLE 08:55:00 08:55:00 [id number] 2019-07-09 2019-07-09 Office Axel [facility] [id number] [facility] 07:56:36 08:11:36 Visit Janusz P AMBULATOR 350.1.13.21 College Y 0.2.7.2.686 of [id number] [facility] petra 300 e 2019-07-09 2019-07-09 Outpatient [facility] [id number] [id number] [facility] 00:00:00 00:00:00 [id number] 2019-02-12 2019-02-12 [facility] [id number] [facility] 09:39:08 09:54:08 Visit Janusz P AMBULATOR 350.1.13.21 College Y 0.2.7.2.686 of [id number] [facility] petra 300 e Results Test Description Test Time Test Comments Results Result Comments Source POCT URINALYSIS DIPSTICK 2020-02-11 00:00:00 Test Item Value Reference Range Interpretation Comme nts COLOR UA (test code = 5778-6) Yellow YELLOW/STRAW CLARITY UA (test code = 06959-4) Clear CLEAR GLUCOSE UA (test code = 5792-7) Negative NEGATIVE BILIRUBIN UA (test code = 5770-3) Negative NEGATIVE KETONES UA (test code = 85160-5) Negative NEGATIVE SPECIFIC GRAVITY UA (test code = 5811-5) 1.005-1.035 BLOOD UA (test code = 5794-3) Negative NEGATIVE PH UA (test code = 5803-2) 5-9 PROTEIN UA (test code = 5804-0) Trace NEGATIVE UROBILINOGEN UA (test code = 5818-0) 0.02 E.U/DL NORMAL MG/DL LEUKOCYTE ESTERASE UA (test code = 5799-2) Negative NEGATIVE NITRITE UA (test code = 5802-4) Negative NEGATIVE REDUCING SUBSTANCES URINE (test code = 72551-7) [facility] [id number] 00:00:00 Test Item Value Reference Range Interpretation Comments COLOR UA (test code = 5778-6) Yellow YELLOW/STRAW CLARITY UA (test code = 83079-3) Clear CLEAR GLUCOSE UA (test code = 5792-7) Negative NEGATIVE BILIRUBIN UA (test code = 5770-3) Negative NEGATIVE KETONES UA (test code = 53635-9) Negative NEGATIVE SPECIFIC GRAVITY UA (test code = 1.005-1.035 5811-5) BLOOD UA (test code = 5794-3) Trace NEGATIVE PH UA (test code = 5803-2) 5-9 PROTEIN UA (test code = 5804-0) 4+ NEGATIVE UROBILINOGEN UA (test code = 0.02 E.U/DL NORMAL MG/DL 5818-0) LEUKOCYTE ESTERASE UA (test code Negative NEGATIVE = 5799-2) NITRITE UA (test code = 5802-4) Negative NEGATIVE REDUCING SUBSTANCES URINE (test code = 59808-2) [facility], 1 VIEW, NON [id number] 18:00:00Reason for exam:->possible atalactasisShould this be performed at the bedside?->YesFINAL REPORT TECHNIQUE: Frontal view of the chest. INDICATION: 64-year-old man with atelectasis. COMPARISON: Chest radiograph 02/08/2017. FINDINGS: LINES/TUBES: None. LUNGS: Thelungs are well inflated and clear. PLEURA: No pneumothorax or significant pleural effusion. HEART AND MEDIASTINUM: The cardiomediastinal silhouette is within normal limits. SOFT TISSUES AND BONES: Unremarkable. IMPRESSION:No acute cardiopulmonary abnormalities. Signed: Jahaira Jain MDReport Verified Date/Time: 07/10/2019 18:00:13 Reading Location: [address] Consult Reading Room FL, FLUORO, NON- SPECIFIC, UP TO 1 [id number] 16:09:00Reason for exam:->right ureteroscopy and stent placementFINAL REPORT A fluoroscopic unit was utilized for a procedure performed in the operating room. No interpretation was requested. Please refer to the operative report regarding findings. Please refer to PACS for patient radiation dose information. Signed: Jahaira Jain MDReport Verified Date/Time: 07/10/2019 16:09:13 Reading Location: [place] [id number] Consult Reading Room POCT URINALYSIS [id number] 00:00:00 Test Item Value Reference Range Interpretation Comments COLOR UA (test code = 5778-6) Yellow YELLOW/STRAW CLARITY UA (test code = 43635-2) Clear CLEAR GLUCOSE UA (test code = 5792-7) Negative NEGATIVE BILIRUBIN UA (test code = 5770-3) Negative NEGATIVE KETONES UA (test code = 10344-8) Positive NEGATIVE SPECIFIC GRAVITY UA (test code = 1.005-1.035 5811-5) BLOOD UA (test code = 5794-3) Large 3+ NEGATIVE PH UA (test code = 5803-2) 5-9 PROTEIN UA (test code = 5804-0) Negative NEGATIVE UROBILINOGEN UA (test code = 0.02 E.U/DL NORMAL MG/DL 5818-0) LEUKOCYTE ESTERASE UA (test code Negative NEGATIVE = 5799-2) NITRITE UA (test code = 5802-4) Negative NEGATIVE REDUCING SUBSTANCES URINE (test code = 15810-5) [facility] [id number] 05:26:00 Test Item Value Reference Range Interpretation Comments SODIUM (BEAKER) 139 meq/L 136-145 (test code = 381) POTASSIUM (BEAKER) 4.2 meq/L 3.5-5.1 (test code = 379) CHLORIDE (BEAKER) 105 meq/L 98-107 (test code = 382) CO2 (BEAKER) (test 25 meq/L 22-29 code = 355) BLOOD UREA NITROGEN 13 mg/dL 7-21 (BEAKER) (test code = 354) CREATININE (BEAKER) 0.98 mg/dL 0.57-1.25 (test code = 358) GLUCOSE RANDOM 92 mg/dL 70-105 (BEAKER) (test code = 652) CALCIUM (BEAKER) 8.4 mg/dL 8.4-10.2 (test code = 697) EGFR (BEAKER) (test 78 mL/min/1.73 ESTIMA MOY GFR IS code = 1092) sq m NOT ACCURATE CREATININE CLEARANCE IN PREDICTING GLOMERULAR FILTRATION RATE . ESTIMATED GFR I S NOT APPLICABLE FOR DIALYSIS PATIEN TS. PROTHROMBIN TIME/[id number] 04:37:00 Test Item Value Reference Range Interpretation Comments PROTIME (BEAKER) (test code = 21.5 seconds 11.7-14.7 H 759) INR (BEAKER) (test code = 370) 1.9 <=5.9 RECOMMENDED COUMADIN/WARFARIN INR THERAPY RANGESSTANDARD DOSE: 2.0 - 3.0 Includes: PROPHYLAXIS forvenous thrombosis, systemic embolization; TREATMENT for venous thrombosis and/or pulmonary embolus.HIGH RISK: Target INR is 2.5-3.5 for patients with mechanical heart valves.While on warfarin.CBC W/PLT COUNT & AUTO [id number] 04:30:00 Test Item Value Reference Range Interpretation Comments WHITE BLOOD CELL COUNT (BEAKER) 7.7 K/ L 3.5-10.5 (test code = 775) RED BLOOD CELL COUNT (BEAKER) 3.23 M/ L 4.63-6.08 L (test code = 761) HEMOGLOBIN (BEAKER) (test code = 9.2 GM/DL 13.7-17.5 L 410) HEMATOCRIT (BEAKER) (test code = 29.6 % 40.1-51.0 L 411) MEAN CORPUSCULAR VOLUME (BEAKER) 91.6 fL 79.0-92.2 (test code = 753) MEAN CORPUSCULAR HEMOGLOBIN 28.5 pg 25.7-32.2 (BEAKER) (test code = 751) MEAN CORPUSCULAR HEMOGLOBIN CONC 31.1 GM/DL 32.3-36.5 L (BEAKER) (test code = 752) RED CELL DISTRIBUTION WIDTH 13.5 % 11.6-14.4 (BEAKER) (test code = 412) PLATELET COUNT (BEAKER) (test 357 K/CU MM 150-450 code = 756) MEAN PLATELET VOLUME (BEAKER) 9.4 fL 9.4-12.4 (test code = 754) NUCLEATED RED BLOOD CELLS 0 /100 WBC 0-0 (BEAKER) (test code = 413) NEUTROPHILS RELATIVE PERCENT 66 % (BEAKER) (test code = 429) LYMPHOCYTES RELATIVE PERCENT 18 % (BEAKER) (test code = 430) MONOCYTES RELATIVE PERCENT 11 % (BEAKER) (test code = 431) EOSINOPHILS RELATIVE PERCENT 3 % (BEAKER) (test code = 432) BASOPHILS RELATIVE PERCENT 1 % (BEAKER) (test code = 437) NEUTROPHILS ABSOLUTE COUNT 5.05 K/ L 1.78-5.38 (BEAKER) (test code = 670) LYMPHOCYTES ABSOLUTE COUNT 1.40 K/ L 1.32-3.57 (BEAKER) (test code = 414) MONOCYTES ABSOLUTE COUNT (BEAKER) 0.85 K/ L 0.30-0.82 H (test code = 415) EOSINOPHILS ABSOLUTE COUNT 0.20 K/ L 0.04-0.54 (BEAKER) (test code = 416) BASOPHILS ABSOLUTE COUNT (BEAKER) 0.06 K/ L 0.01-0.08 (test code = 417) IMMATURE GRANULOCYTES-RELATIVE 1 % 0-1 PERCENT (BEAKER) (test code = 2801) BASIC METABOLIC [id number] 05:51:00 Test Item Value Reference Range Interpretation Comments SODIUM (BEAKER) 139 meq/L 136-145 (test code = 381) POTASSIUM (BEAKER) 4.0 meq/L 3.5-5.1 (test code = 379) CHLORIDE (BEAKER) 108 meq/L 98-107 H (test code = 382) CO2 (BEAKER) (test 23 meq/L 22-29 code = 355) BLOOD UREA NITROGEN 10 mg/dL 7-21 (BEAKER) (test code = 354) CREATININE (BEAKER) 0.87 mg/dL 0.57-1.25 (test code = 358) GLUCOSE RANDOM 96 mg/dL 70-105 (BEAKER) (test code = 652) CALCIUM (BEAKER) 8.1 mg/dL 8.4-10.2 L (test code = 697) EGFR (BEAKER) (test 89 mL/min/1.73 ESTIMA MOY GFR IS code = 1092) sq m NOT ACCURATE CREATININE CLEARANCE IN PREDICTING GLOMERULAR FILTRATION RATE . ESTIMATED GFR I S NOT APPLICABLE FOR DIALYSIS PATIEN TS. PROTHROMBIN TIME/[id number] 05:33:00 Test Item Value Reference Range Interpretation Comments PROTIME (BEAKER) (test code = 18.4 seconds 11.7-14.7 H 759) INR (BEAKER) (test code = 370) 1.5 <=5.9 RECOMMENDED COUMADIN/WARFARIN INR THERAPY RANGESSTANDARD DOSE: 2.0 - 3.0 Includes: PROPHYLAXIS forvenous thrombosis, systemic embolization; TREATMENT for venous thrombosis and/or pulmonary embolus.HIGH RISK: Target INR is 2.5-3.5 for patients with mechanical heart valves.While on warfarin.CBC W/PLT COUNT & AUTO [id number] 05:28:00 Test Item Value Reference Range Interpretation Comments WHITE BLOOD CELL COUNT (BEAKER) 6.6 K/ L 3.5-10.5 (test code = 775) RED BLOOD CELL COUNT (BEAKER) 2.96 M/ L 4.63-6.08 L (test code = 761) HEMOGLOBIN (BEAKER) (test code = 8.5 GM/DL 13.7-17.5 L 410) HEMATOCRIT (BEAKER) (test code = 26.9 % 40.1-51.0 L 411) MEAN CORPUSCULAR VOLUME (BEAKER) 90.9 fL 79.0-92.2 (test code = 753) MEAN CORPUSCULAR HEMOGLOBIN 28.7 pg 25.7-32.2 (BEAKER) (test code = 751) MEAN CORPUSCULAR HEMOGLOBIN CONC 31.6 GM/DL 32.3-36.5 L (BEAKER) (test code = 752) RED CELL DISTRIBUTION WIDTH 13.8 % 11.6-14.4 (BEAKER) (test code = 412) PLATELET COUNT (BEAKER) (test 342 K/CU MM 150-450 code = 756) MEAN PLATELET VOLUME (BEAKER) 9.1 fL 9.4-12.4 L (test code = 754) NUCLEATED RED BLOOD CELLS 0 /100 WBC 0-0 (BEAKER) (test code = 413) NEUTROPHILS RELATIVE PERCENT 64 % (BEAKER) (test code = 429) LYMPHOCYTES RELATIVE PERCENT 19 % (BEAKER) (test code = 430) MONOCYTES RELATIVE PERCENT 12 % (BEAKER) (test code = 431) EOSINOPHILS RELATIVE PERCENT 3 % (BEAKER) (test code = 432) BASOPHILS RELATIVE PERCENT 1 % (BEAKER) (test code = 437) NEUTROPHILS ABSOLUTE COUNT 4.24 K/ L 1.78-5.38 (BEAKER) (test code = 670) LYMPHOCYTES ABSOLUTE COUNT 1.25 K/ L 1.32-3.57 L (BEAKER) (test code = 414) MONOCYTES ABSOLUTE COUNT (BEAKER) 0.78 K/ L 0.30-0.82 (test code = 415) EOSINOPHILS ABSOLUTE COUNT 0.20 K/ L 0.04-0.54 (BEAKER) (test code = 416) BASOPHILS ABSOLUTE COUNT (BEAKER) 0.07 K/ L 0.01-0.08 (test code = 417) IMMATURE GRANULOCYTES-RELATIVE 1 % 0-1 PERCENT (BEAKER) (test code = 2801) PROTHROMBIN [id number] 08:49:00 Test Item Value Reference Range Interpretation Comments PROTIME (BEAKER) (test code = 14.6 seconds 11.7-14.7 759) INR (BEAKER) (test code = 370) 1.1 <=5.9 RECOMMENDED COUMADIN/WARFARIN INR THERAPY RANGESSTANDARD DOSE: 2.0 - 3.0 Includes: PROPHYLAXIS forvenous thrombosis, systemic embolization; TREATMENT for venous thrombosis and/or pulmonary embolus.HIGH RISK: Target INR is 2.5-3.5 for patients with mechanical heart valves.While on warfarin.[id number] 05:23:00 Test Item Value Reference Range Interpretation Comments MAGNESIUM (BEAKER) (test code = 2.0 mg/dL 1.6-2.6 627) BASIC METABOLIC [id number] 05:23:00 Test Item Value Reference Range Interpretation Comments SODIUM (BEAKER) 138 meq/L 136-145 (test code = 381) POTASSIUM (BEAKER) 3.8 meq/L 3.5-5.1 (test code = 379) CHLORIDE (BEAKER) 106 meq/L 98-107 (test code = 382) CO2 (BEAKER) (test 24 meq/L 22-29 code = 355) BLOOD UREA NITROGEN 11 mg/dL 7-21 (BEAKER) (test code = 354) CREATININE (BEAKER) 0.85 mg/dL 0.57-1.25 (test code = 358) GLUCOSE RANDOM 99 mg/dL 70-105 (BEAKER) (test code = 652) CALCIUM (BEAKER) 8.2 mg/dL 8.4-10.2 L (test code = 697) EGFR (BEAKER) (test 92 mL/min/1.73 ESTIMA MOY GFR IS code = 1092) sq m NOT ACCURATE CREATININE CLEARANCE IN PREDICTING GLOMERULAR FILTRATION RATE . ESTIMATED GFR I S NOT APPLICABLE FOR DIALYSIS PATIEN TS. [id number] 05:22:00 Test Item Value Reference Range Interpretation Comments PHOSPHORUS (BEAKER) (test code = 3.6 mg/dL 2.3-4.7 604) CBC W/PLT COUNT & AUTO [id number] 05:01:00 Test Item Value Reference Range Interpretation Comments WHITE BLOOD CELL COUNT (BEAKER) 6.5 K/ L 3.5-10.5 (test code = 775) RED BLOOD CELL COUNT (BEAKER) 2.92 M/ L 4.63-6.08 L (test code = 761) HEMOGLOBIN (BEAKER) (test code = 8.3 GM/DL 13.7-17.5 L 410) HEMATOCRIT (BEAKER) (test code = 26.7 % 40.1-51.0 L 411) MEAN CORPUSCULAR VOLUME (BEAKER) 91.4 fL 79.0-92.2 (test code = 753) MEAN CORPUSCULAR HEMOGLOBIN 28.4 pg 25.7-32.2 (BEAKER) (test code = 751) MEAN CORPUSCULAR HEMOGLOBIN CONC 31.1 GM/DL 32.3-36.5 L (BEAKER) (test code = 752) RED CELL DISTRIBUTION WIDTH 13.6 % 11.6-14.4 (BEAKER) (test code = 412) PLATELET COUNT (BEAKER) (test 328 K/CU MM 150-450 code = 756) MEAN PLATELET VOLUME (BEAKER) 9.0 fL 9.4-12.4 L (test code = 754) NUCLEATED RED BLOOD CELLS 0 /100 WBC 0-0 (BEAKER) (test code = 413) NEUTROPHILS RELATIVE PERCENT 66 % (BEAKER) (test code = 429) LYMPHOCYTES RELATIVE PERCENT 17 % (BEAKER) (test code = 430) MONOCYTES RELATIVE PERCENT 11 % (BEAKER) (test code = 431) EOSINOPHILS RELATIVE PERCENT 4 % (BEAKER) (test code = 432) BASOPHILS RELATIVE PERCENT 1 % (BEAKER) (test code = 437) NEUTROPHILS ABSOLUTE COUNT 4.27 K/ L 1.78-5.38 (BEAKER) (test code = 670) LYMPHOCYTES ABSOLUTE COUNT 1.13 K/ L 1.32-3.57 L (BEAKER) (test code = 414) MONOCYTES ABSOLUTE COUNT (BEAKER) 0.73 K/ L 0.30-0.82 (test code = 415) EOSINOPHILS ABSOLUTE COUNT 0.24 K/ L 0.04-0.54 (BEAKER) (test code = 416) BASOPHILS ABSOLUTE COUNT (BEAKER) 0.06 K/ L 0.01-0.08 (test code = 417) IMMATURE GRANULOCYTES-RELATIVE 1 % 0-1 PERCENT (BEAKER) (test code = 2801) URINE [id number] 12:18:00 Test Item Value Reference Range Interpretation Comments CULTURE (BEAKER) (test code = 1095) No growth [id number] 06:26:00 Test Item Value Reference Range Interpretation Comments PHOSPHORUS (BEAKER) (test code = 4.1 mg/dL 2.3-4.7 604) [id number] 06:26:00 Test Item Value Reference Range Interpretation Comments MAGNESIUM (BEAKER) (test code = 2.0 mg/dL 1.6-2.6 627) BASIC METABOLIC [id number] 06:26:00 Test Item Value Reference Range Interpretation Comments SODIUM (BEAKER) 140 meq/L 136-145 (test code = 381) POTASSIUM (BEAKER) 3.9 meq/L 3.5-5.1 (test code = 379) CHLORIDE (BEAKER) 107 meq/L 98-107 (test code = 382) CO2 (BEAKER) (test 25 meq/L 22-29 code = 355) BLOOD UREA NITROGEN 9 mg/dL 7-21 (BEAKER) (test code = 354) CREATININE (BEAKER) 0.91 mg/dL 0.57-1.25 (test code = 358) GLUCOSE RANDOM 93 mg/dL 70-105 (BEAKER) (test code = 652) CALCIUM (BEAKER) 8.2 mg/dL 8.4-10.2 L (test code = 697) EGFR (BEAKER) (test 85 mL/min/1.73 ESTIMA MOY GFR IS code = 1092) sq m NOT ACCURATE CREATININE CLEARANCE IN PREDICTING GLOMERULAR FILTRATION RATE . ESTIMATED GFR I S NOT APPLICABLE FOR DIALYSIS PATIEN TS. CBC W/PLT COUNT & AUTO [id number] 05:37:00 Test Item Value Reference Range Interpretation Comments WHITE BLOOD CELL COUNT (BEAKER) 7.2 K/ L 3.5-10.5 (test code = 775) RED BLOOD CELL COUNT (BEAKER) 2.76 M/ L 4.63-6.08 L (test code = 761) HEMOGLOBIN (BEAKER) (test code = 7.8 GM/DL 13.7-17.5 L 410) HEMATOCRIT (BEAKER) (test code = 25.6 % 40.1-51.0 L 411) MEAN CORPUSCULAR VOLUME (BEAKER) 92.8 fL 79.0-92.2 H (test code = 753) MEAN CORPUSCULAR HEMOGLOBIN 28.3 pg 25.7-32.2 (BEAKER) (test code = 751) MEAN CORPUSCULAR HEMOGLOBIN CONC 30.5 GM/DL 32.3-36.5 L (BEAKER) (test code = 752) RED CELL DISTRIBUTION WIDTH 13.8 % 11.6-14.4 (BEAKER) (test code = 412) PLATELET COUNT (BEAKER) (test 314 K/CU MM 150-450 code = 756) MEAN PLATELET VOLUME (BEAKER) 9.6 fL 9.4-12.4 (test code = 754) NUCLEATED RED BLOOD CELLS 0 /100 WBC 0-0 (BEAKER) (test code = 413) NEUTROPHILS RELATIVE PERCENT 68 % (BEAKER) (test code = 429) LYMPHOCYTES RELATIVE PERCENT 15 % (BEAKER) (test code = 430) MONOCYTES RELATIVE PERCENT 12 % (BEAKER) (test code = 431) EOSINOPHILS RELATIVE PERCENT 3 % (BEAKER) (test code = 432) BASOPHILS RELATIVE PERCENT 1 % (BEAKER) (test code = 437) NEUTROPHILS ABSOLUTE COUNT 4.89 K/ L 1.78-5.38 (BEAKER) (test code = 670) LYMPHOCYTES ABSOLUTE COUNT 1.08 K/ L 1.32-3.57 L (BEAKER) (test code = 414) MONOCYTES ABSOLUTE COUNT (BEAKER) 0.84 K/ L 0.30-0.82 H (test code = 415) EOSINOPHILS ABSOLUTE COUNT 0.20 K/ L 0.04-0.54 (BEAKER) (test code = 416) BASOPHILS ABSOLUTE COUNT (BEAKER) 0.06 K/ L 0.01-0.08 (test code = 417) IMMATURE GRANULOCYTES-RELATIVE 1 % 0-1 PERCENT (BEAKER) (test code = 2801) [id number] 06:02:00 Test Item Value Reference Range Interpretation Comments PHOSPHORUS (BEAKER) (test code = 3.9 mg/dL 2.3-4.7 604) [id number] 06:02:00 Test Item Value Reference Range Interpretation Comments MAGNESIUM (BEAKER) (test code = 2.0 mg/dL 1.6-2.6 627) BASIC METABOLIC [id number] 06:02:00 Test Item Value Reference Range Interpretation Comments SODIUM (BEAKER) 137 meq/L 136-145 (test code = 381) POTASSIUM (BEAKER) 3.2 meq/L 3.5-5.1 L (test code = 379) CHLORIDE (BEAKER) 102 meq/L 98-107 (test code = 382) CO2 (BEAKER) (test 25 meq/L 22-29 code = 355) BLOOD UREA NITROGEN 11 mg/dL 7-21 (BEAKER) (test code = 354) CREATININE (BEAKER) 0.87 mg/dL 0.57-1.25 (test code = 358) GLUCOSE RANDOM 100 mg/dL 70-105 (BEAKER) (test code = 652) CALCIUM (BEAKER) 8.0 mg/dL 8.4-10.2 L (test code = 697) EGFR (BEAKER) (test 89 mL/min/1.73 ESTIMA MOY GFR IS code = 1092) sq m NOT ACCURATE CREATININE CLEARANCE IN PREDICTING GLOMERULAR FILTRATION RATE . ESTIMATED GFR I S NOT APPLICABLE FOR DIALYSIS PATIEN TS. CBC W/PLT COUNT & AUTO [id number] 05:40:00 Test Item Value Reference Range Interpretation Comments WHITE BLOOD CELL COUNT (BEAKER) 7.0 K/ L 3.5-10.5 (test code = 775) RED BLOOD CELL COUNT (BEAKER) 2.73 M/ L 4.63-6.08 L (test code = 761) HEMOGLOBIN (BEAKER) (test code = 8.0 GM/DL 13.7-17.5 L 410) HEMATOCRIT (BEAKER) (test code = 25.2 % 40.1-51.0 L 411) MEAN CORPUSCULAR VOLUME (BEAKER) 92.3 fL 79.0-92.2 H (test code = 753) MEAN CORPUSCULAR HEMOGLOBIN 29.3 pg 25.7-32.2 (BEAKER) (test code = 751) MEAN CORPUSCULAR HEMOGLOBIN CONC 31.7 GM/DL 32.3-36.5 L (BEAKER) (test code = 752) RED CELL DISTRIBUTION WIDTH 13.7 % 11.6-14.4 (BEAKER) (test code = 412) PLATELET COUNT (BEAKER) (test 278 K/CU MM 150-450 code = 756) MEAN PLATELET VOLUME (BEAKER) 9.6 fL 9.4-12.4 (test code = 754) NUCLEATED RED BLOOD CELLS 0 /100 WBC 0-0 (BEAKER) (test code = 413) NEUTROPHILS RELATIVE PERCENT 68 % (BEAKER) (test code = 429) LYMPHOCYTES RELATIVE PERCENT 16 % (BEAKER) (test code = 430) MONOCYTES RELATIVE PERCENT 12 % (BEAKER) (test code = 431) EOSINOPHILS RELATIVE PERCENT 2 % (BEAKER) (test code = 432) BASOPHILS RELATIVE PERCENT 1 % (BEAKER) (test code = 437) NEUTROPHILS ABSOLUTE COUNT 4.78 K/ L 1.78-5.38 (BEAKER) (test code = 670) LYMPHOCYTES ABSOLUTE COUNT 1.11 K/ L 1.32-3.57 L (BEAKER) (test code = 414) MONOCYTES ABSOLUTE COUNT (BEAKER) 0.84 K/ L 0.30-0.82 H (test code = 415) EOSINOPHILS ABSOLUTE COUNT 0.17 K/ L 0.04-0.54 (BEAKER) (test code = 416) BASOPHILS ABSOLUTE COUNT (BEAKER) 0.05 K/ L 0.01-0.08 (test code = 417) IMMATURE GRANULOCYTES-RELATIVE 1 % 0-1 PERCENT (BEAKER) (test code = 2801) TISSUE [id number] 15:55:00Surgical Pathology Report Case: [id number] Authorizing Provider: Janusz Marquez MD Collected: 01/30/2017 1109 Ordering Location: [facility] PERIOPERATIVE Received: 01/30/2017 1242 SERVICES Pathologist: Nikolay García MD Specimens: A) -Lymph Node, Pelvic, Right, RIGHT PELVIC LYMPH NODE B) - Ligament, LEFT DEVAN'S LIGAMENT C) - LymphNode, LEFT OBTURATOR NODE D) - Lymph Node, RIGHT EXTERNAL ILIUM NODE E) - Lymph Node, RIGHT OBTURATOR LYMPH NODE F) - Prostate, RADICAL [...] (0/7)F. PROSTATE, RADICAL RETROPUBIC PROSTATECTOMY : - AD ENOCARCINOMA, ROB 3+4=7, CONFINED TO THE PROSTATE, SURGICAL MARGINS NEGATIVE SEMINAL VESICLES, RADICAL RETROPUBIC PROSTATECTOMY: - NO PATHOLOGIC DIAGNOSIS Signing Pathologist Direct Phone Line: [phone] signed by Nikolay García MD on 02/08/2017 [...] Prostate Size: Size (cm): 5.2 cm Size (cm): 4.2 cm Size (cm): 4 cm Prostate Weight: Specify Weight (g): 54.4 Lymph Node Sampling: Pelvic lymph node dissectionTUMOR Histologic Type: Adenocarcinoma (acinar, not otherwise specified) Rob Pattern: Rob pattern Primary Pattern: Grade 3 Secondary Pattern: Grade 4 Tertiary Pattern: Not applicable Total Rob Score: 7 Tumor Quantitation: Proportion (percentage) of [...] Nodular prostatic hyperplasiaSPECIAL STUDIES Ancillary Studies: Not [id number], [id number] cancerA. Right pelvic lymph node; B. Left Devan's ligament; C. Left obturator node; D. Right external iliac ilium node;E. Right obturator lymph node; F. prostate.The specimen is received in five containers of formalin all labeled with the patient's information. Specimen A labeled "right pelvic lymph node" consists of adipose tissue measuring 3 x 2 x 1 cm yielding two rodgers-pink gritty lymph nodes measuring 0.8 and 3 cm.The specimen is entirely submitted as follows: A1 and A2, largest lymph node bisected; A3, smaller lymph [...] into ten slices to reveal pink-rodgers to hernadez- white, homogeneous, focally nodular prostatic parenchyma throughout. No [...] ?/ewPerformedCT, CHEST WITH IV CONTRAST- PE TEST DESIGN 2017-02-08 10:37:00FINAL REPORT CT of the chest, pulmonary embolism [...] dose optimization program which includes automated exposure control, adjustment of the mA and/or kV according [...] be related to reflux. There is trace right-sided pleural effusion. Patchy consolidation is noted in [...] stones in the right kidney. Signed: Pawan Whitmanort Verified Date/Time: 02/08/2017 10:37:56 Reading Location: [facility] C0Y CT Body Reading Room RAD, CHEST, 1 VIEW, NON [id number] 08:47:00Reason for exam:->low satsShould this be performed [...] are seen in the spine. Signed: Helen Alegria MDReport Verified Date/Time: 02/08/2017 08:47:12 Reading Location: [facility] Radiology Reading Room URINALYSIS W/ [id number] 08:12:00 Test Item Value Reference Range Interpretation Comments COLOR (BEAKER) (test code = 470) Red CLARITY (BEAKER) (test code = Hazy 469) SPECIFIC GRAVITY UA (BEAKER) 1.014 1.001-1.035 (test code = 468) PH UA (BEAKER) (test code = 467) 6.5 5.0-8.0 PROTEIN UA (BEAKER) (test code = 300 mg/dL Negative A 464) GLUCOSE UA (BEAKER) (test code = 30 mg/dL Negative A 365) KETONES UA (BEAKER) (test code = Trace Negative A 371) BILIRUBIN UA (BEAKER) (test code Negative Negative = 462) BLOOD UA (BEAKER) (test code = Large Negative A 461) NITRITE UA (BEAKER) (test code = Negative Negative 465) LEUKOCYTE ESTERASE UA (BEAKER) Moderate Negative A (test code = 466) UROBILINOGEN UA (BEAKER) (test 0.2 mg/dL 0.2-1.0 code = 463) RBC UA (BEAKER) (test code = > /HPF 519) WBC UA (BEAKER) (test code = 17 /HPF 520) MUCUS (BEAKER) (test code = Moderate 1574) SOURCE(BEAKER) (test code = Urine, [place] 0655) BASIC METABOLIC [id number] 06:24:00 Test Item Value Reference Range Interpretation Comments SODIUM (BEAKER) 133 meq/L 136-145 L (test code = 381) POTASSIUM (BEAKER) 3.6 meq/L 3.5-5.1 (test code = 379) CHLORIDE (BEAKER) 98 meq/L 98-107 (test code = 382) CO2 (BEAKER) (test 25 meq/L 22-29 code = 355) BLOOD UREA NITROGEN 15 mg/dL 7-21 (BEAKER) (test code = 354) CREATININE (BEAKER) 0.88 mg/dL 0.57-1.25 (test code = 358) GLUCOSE RANDOM 103 mg/dL 70-105 (BEAKER) (test code = 652) CALCIUM (BEAKER) 8.6 mg/dL 8.4-10.2 (test code = 697) EGFR (BEAKER) (test 88 mL/min/1.73 ESTIMA MOY GFR IS code = 1092) sq m NOT ACCURATE CREATININE CLEARANCE IN PREDICTING GLOMERULAR FILTRATION RATE . ESTIMATED GFR I S NOT APPLICABLE FOR DIALYSIS PATIEN TS. PROTHROMBIN [id number] 06:06:00 Test Item Value Reference Range Interpretation Comments PROTIME (BEAKER) (test code = 15.4 seconds 11.7-14.7 H 759) INR (BEAKER) (test code = 370) 1.2 <=5.9 RECOMMENDED COUMADIN/WARFARIN INR THERAPY RANGESSTANDARD DOSE: 2.0 - 3.0 Includes: PROPHYLAXIS forvenous thrombosis, systemic embolization; TREATMENT for venous thrombosis and/or pulmonary embolus.HIGH RISK: Target INR is 2.5-3.5 for patients with mechanical heart valves.CBC W/PLT COUNT & AUTO DIFFERENTIAL 2017-02-08 05:56:00 Test Item Value Reference Range Interpretation Comments WHITE BLOOD CELL COUNT (BEAKER) 11.7 K/ L 3.5-10.5 H (test code = 775) RED BLOOD CELL COUNT (BEAKER) 2.74 M/ L 4.63-6.08 L (test code = 761) HEMOGLOBIN (BEAKER) (test code = 8.3 GM/DL 13.7-17.5 L 410) HEMATOCRIT (BEAKER) (test code = 25.1 % 40.1-51.0 L 411) MEAN CORPUSCULAR VOLUME (BEAKER) 91.6 fL 79.0-92.2 (test code = 753) MEAN CORPUSCULAR HEMOGLOBIN 30.3 pg 25.7-32.2 (BEAKER) (test code = 751) MEAN CORPUSCULAR HEMOGLOBIN CONC 33.1 GM/DL 32.3-36.5 (BEAKER) (test code = 752) RED CELL DISTRIBUTION WIDTH 13.6 % 11.6-14.4 (BEAKER) (test code = 412) PLATELET COUNT (BEAKER) (test 280 K/CU MM 150-450 code = 756) MEAN PLATELET VOLUME (BEAKER) 9.2 fL 9.4-12.4 L (test code = 754) NUCLEATED RED BLOOD CELLS 0 /100 WBC 0-0 (BEAKER) (test code = 413) NEUTROPHILS RELATIVE PERCENT 79 % (BEAKER) (test code = 429) LYMPHOCYTES RELATIVE PERCENT 7 % (BEAKER) (test code = 430) MONOCYTES RELATIVE PERCENT 12 % (BEAKER) (test code = 431) EOSINOPHILS RELATIVE PERCENT 1 % (BEAKER) (test code = 432) BASOPHILS RELATIVE PERCENT 0 % (BEAKER) (test code = 437) NEUTROPHILS ABSOLUTE COUNT 9.16 K/ L 1.78-5.38 H (BEAKER) (test code = 670) LYMPHOCYTES ABSOLUTE COUNT 0.85 K/ L 1.32-3.57 L (BEAKER) (test code = 414) MONOCYTES ABSOLUTE COUNT (BEAKER) 1.43 K/ L 0.30-0.82 H (test code = 415) EOSINOPHILS ABSOLUTE COUNT 0.06 K/ L 0.04-0.54 (BEAKER) (test code = 416) BASOPHILS ABSOLUTE COUNT (BEAKER) 0.05 K/ L 0.01-0.08 (test code = 417) IMMATURE GRANULOCYTES-RELATIVE 1 % 0-1 PERCENT (BEAKER) (test code = 2801) BASIC METABOLIC [id number] 05:58:00 Test Item Value Reference Range Interpretation Comments SODIUM (BEAKER) 138 meq/L 136-145 (test code = 381) POTASSIUM (BEAKER) 3.8 meq/L 3.5-5.1 (test code = 379) CHLORIDE (BEAKER) 107 meq/L 98-107 (test code = 382) CO2 (BEAKER) (test 24 meq/L 22-29 code = 355) BLOOD UREA NITROGEN 12 mg/dL 7-21 (BEAKER) (test code = 354) CREATININE (BEAKER) 0.72 mg/dL 0.57-1.25 (test code = 358) GLUCOSE RANDOM 107 mg/dL 70-105 H (BEAKER) (test code = 652) CALCIUM (BEAKER) 7.8 mg/dL 8.4-10.2 L (test code = 697) EGFR (BEAKER) (test 111 mL/min/1.73 ESTIM ATED GFR IS code = 1092) sq m NOT ACCURATE CREATININE CLEARANCE IN PREDICTING GLOMERULAR FILTRATION RATE . ESTIMATED GFR I S NOT APPLICABLE FOR DIALYSIS PATIEN TS. [id number] 05:56:00 Test Item Value Reference Range Interpretation Comments PHOSPHORUS (BEAKER) (test code = 2.7 mg/dL 2.3-4.7 604) [id number] 05:56:00 Test Item Value Reference Range Interpretation Comments MAGNESIUM (BEAKER) (test code = 1.8 mg/dL 1.6-2.6 627) CBC W/PLT COUNT & AUTO [id number] 05:20:00 Test Item Value Reference Range Interpretation Comments WHITE BLOOD CELL COUNT (BEAKER) 10.5 K/ L 3.5-10.5 (test code = 775) RED BLOOD CELL COUNT (BEAKER) 3.03 M/ L 4.63-6.08 L (test code = 761) HEMOGLOBIN (BEAKER) (test code = 8.9 GM/DL 13.7-17.5 L 410) HEMATOCRIT (BEAKER) (test code = 27.8 % 40.1-51.0 L 411) MEAN CORPUSCULAR VOLUME (BEAKER) 91.7 fL 79.0-92.2 (test code = 753) MEAN CORPUSCULAR HEMOGLOBIN 29.4 pg 25.7-32.2 (BEAKER) (test code = 751) MEAN CORPUSCULAR HEMOGLOBIN CONC 32.0 GM/DL 32.3-36.5 L (BEAKER) (test code = 752) RED CELL DISTRIBUTION WIDTH 13.5 % 11.6-14.4 (BEAKER) (test code = 412) PLATELET COUNT (BEAKER) (test 149 K/CU MM 150-450 L code = 756) MEAN PLATELET VOLUME (BEAKER) 10.7 fL 9.4-12.4 (test code = 754) NUCLEATED RED BLOOD CELLS 0 /100 WBC 0-0 (BEAKER) (test code = 413) NEUTROPHILS RELATIVE PERCENT 66 % (BEAKER) (test code = 429) LYMPHOCYTES RELATIVE PERCENT 18 % (BEAKER) (test code = 430) MONOCYTES RELATIVE PERCENT 13 % (BEAKER) (test code = 431) EOSINOPHILS RELATIVE PERCENT 1 % (BEAKER) (test code = 432) BASOPHILS RELATIVE PERCENT 1 % (BEAKER) (test code = 437) NEUTROPHILS ABSOLUTE COUNT 6.96 K/ L 1.78-5.38 H (BEAKER) (test code = 670) LYMPHOCYTES ABSOLUTE COUNT 1.93 K/ L 1.32-3.57 (BEAKER) (test code = 414) MONOCYTES ABSOLUTE COUNT (BEAKER) 1.36 K/ L 0.30-0.82 H (test code = 415) EOSINOPHILS ABSOLUTE COUNT 0.12 K/ L 0.04-0.54 (BEAKER) (test code = 416) BASOPHILS ABSOLUTE COUNT (BEAKER) 0.05 K/ L 0.01-0.08 (test code = 417) IMMATURE GRANULOCYTES-RELATIVE 1 % 0-1 PERCENT (BEAKER) (test code = 2801) CREATININE, BODY [id number] 12:29:00 Test Item Value Reference Range Interpretation Comments CREATININE FLUID (BEAKER) (test 0.66 mg/dL code = 677) Reference Range: No Normals Assay performance has not been validated for this type of specimen.BASIC METABOLIC [id number] 05:56:00 Test Item Value Reference Range Interpretation Comments SODIUM (BEAKER) 140 meq/L 136-145 (test code = 381) POTASSIUM (BEAKER) 3.6 meq/L 3.5-5.1 (test code = 379) CHLORIDE (BEAKER) 110 meq/L 98-107 H (test code = 382) CO2 (BEAKER) (test 24 meq/L 22-29 code = 355) BLOOD UREA NITROGEN 10 mg/dL 7-21 (BEAKER) (test code = 354) CREATININE (BEAKER) 0.77 mg/dL 0.57-1.25 (test code = 358) GLUCOSE RANDOM 96 mg/dL 70-105 (BEAKER) (test code = 652) CALCIUM (BEAKER) 7.3 mg/dL 8.4-10.2 L (test code = 697) EGFR (BEAKER) (test 103 mL/min/1.73 ESTIM ATED GFR IS code = 1092) sq m NOT ACCURATE CREATININE CLEARANCE IN PREDICTING GLOMERULAR FILTRATION RATE . ESTIMATED GFR I S NOT APPLICABLE FOR DIALYSIS PATIEN TS. [id number] 05:49:00 Test Item Value Reference Range Interpretation Comments PHOSPHORUS (BEAKER) (test code = 2.3 mg/dL 2.3-4.7 604) [id number] 05:49:00 Test Item Value Reference Range Interpretation Comments MAGNESIUM (BEAKER) (test code = 1.9 mg/dL 1.6-2.6 627) HEMOGLOBIN AND [id number] 05:27:00 Test Item Value Reference Range Interpretation Comments HEMOGLOBIN (BEAKER) (test code = 9.3 GM/DL 13.7-17.5 L 410) HEMATOCRIT (BEAKER) (test code = 28.4 % 40.1-51.0 L 411) BASIC METABOLIC [id number] 06:15:00 Test Item Value Reference Range Interpretation Comments SODIUM (BEAKER) 139 meq/L 136-145 (test code = 381) POTASSIUM (BEAKER) 4.0 meq/L 3.5-5.1 (test code = 379) CHLORIDE (BEAKER) 108 meq/L 98-107 H (test code = 382) CO2 (BEAKER) (test 26 meq/L 22-29 code = 355) BLOOD UREA NITROGEN 10 mg/dL 7-21 (BEAKER) (test code = 354) CREATININE (BEAKER) 0.80 mg/dL 0.57-1.25 (test code = 358) GLUCOSE RANDOM 116 mg/dL 70-105 H (BEAKER) (test code = 652) CALCIUM (BEAKER) 7.8 mg/dL 8.4-10.2 L (test code = 697) EGFR (BEAKER) (test 98 mL/min/1.73 ESTIMA MOY GFR IS code = 1092) sq m NOT ACCURATE CREATININE CLEARANCE IN PREDICTING GLOMERULAR FILTRATION RATE . ESTIMATED GFR I S NOT APPLICABLE FOR DIALYSIS PATIEN TS. HEMOGLOBIN AND [id number] 05:44:00 Test Item Value Reference Range Interpretation Comments HEMOGLOBIN (BEAKER) (test code = 10.1 GM/DL 13.7-17.5 L 410) HEMATOCRIT (BEAKER) (test code = 30.6 % 40.1-51.0 L 411) HEMOGLOBIN AND [id number] 17:17:00 Test Item Value Reference Range Interpretation Comments HEMOGLOBIN (BEAKER) (test code = 10.4 GM/DL 13.7-17.5 L 410) HEMATOCRIT (BEAKER) (test code = 31.9 % 40.1-51.0 L 411) BASIC METABOLIC [id number] 16:43:00 Test Item Value Reference Range Interpretation Comments SODIUM (BEAKER) 141 meq/L 136-145 (test code = 381) POTASSIUM (BEAKER) 3.5 meq/L 3.5-5.1 (test code = 379) CHLORIDE (BEAKER) 109 meq/L 98-107 H (test code = 382) CO2 (BEAKER) (test 21 meq/L 22-29 L code = 355) BLOOD UREA NITROGEN 11 mg/dL 7-21 (BEAKER) (test code = 354) CREATININE (BEAKER) 0.82 mg/dL 0.57-1.25 (test code = 358) GLUCOSE RANDOM 174 mg/dL 70-105 H (BEAKER) (test code = 652) CALCIUM (BEAKER) 7.3 mg/dL 8.4-10.2 L (test code = 697) EGFR (BEAKER) (test 96 mL/min/1.73 ESTIMA MOY GFR IS code = 1092) sq m NOT ACCURATE CREATININE CLEARANCE IN PREDICTING GLOMERULAR FILTRATION RATE . ESTIMATED GFR I S NOT APPLICABLE FOR DIALYSIS PATIEN TS. [facility] [id number] 12:37:00 Test Item Value Reference Range Interpretation Comments CALCIUM IONIZED (BEAKER) (test 1.04 mmol/L 1.12-1.27 L code = 698) PH, BLOOD (BEAKER) (test code = 7.37 1810) BLOOD GAS, [id number] 12:36:00 Test Item Value Reference Range Interpretation Comments PH ARTERIAL (BEAKER) (test code = 7.37 7.35-7.45 383) PCO2 ARTERIAL (BEAKER) (test code 43 mmHg 35-45 = 384) PO2 ARTERIAL (BEAKER) (test code 173 mmHg 80-90 H = 385) O2 SATURATION ARTERIAL (BEAKER) 99.1 % 96.0-97.0 H (test code = 386) HCO3 ARTERIAL (BEAKER) (test code 25 mmol/L 21-29 = 388) BASE EXCESS ARTERIAL (BEAKER) -0.9 mmol/L -2.0-3.0 (test code = 387) PATIENT TEMPERATURE (BEAKER) 37.0 C (test code = 1818) FIO2 (BEAKER) (test code = 1819) 100.0 % GLUCOSE-STAT [id number] 12:36:00 Test Item Value Reference Range Interpretation Comments GLUCOSE RANDOM (BEAKER) (test code 114 mg/dL 70-110 H = 652) SODIUM NA-STAT [id number] 12:28:00 Test Item Value Reference Range Interpretation Comments SODIUM (BEAKER) (test code = 381) 139 meq/L 135-148 POTASSIUM-STAT [id number] 12:28:00 Test Item Value Reference Range Interpretation Comments POTASSIUM (BEAKER) (test code = 3.9 meq/L 3.6-5.5 379) HGB/HCT (H&H) - STAT [id number] 12:28:00 Test Item Value Reference Range Interpretation Comments HEMOGLOBIN (BEAKER) (test code = 13.8 g/dL 13.0-16.8 410) HEMATOCRIT (BEAKER) (test code = 41.0 % 40.0-50.0 411) BASIC METABOLIC [id number] 09:59:00 Test Item Value Reference Range Interpretation Comments SODIUM (BEAKER) 140 meq/L 136-145 (test code = 381) POTASSIUM (BEAKER) 4.2 meq/L 3.5-5.1 Specimen slightly (test code = 379) hemolyzed CHLORIDE (BEAKER) 107 meq/L 98-107 (test code = 382) CO2 (BEAKER) (test 24 meq/L 22-29 code = 355) BLOOD UREA NITROGEN 12 mg/dL 7-21 (BEAKER) (test code = 354) CREATININE (BEAKER) 0.87 mg/dL 0.57-1.25 Specimen slightly (test code = 358) hemolyzed GLUCOSE RANDOM 100 mg/dL 70-105 (BEAKER) (test code = 652) CALCIUM (BEAKER) 9.0 mg/dL 8.4-10.2 (test code = 697) EGFR (BEAKER) (test 89 mL/min/1.73 ESTIMA MOY GFR IS code = 1092) sq m NOT ACCURATE CREATININE CLEARANCE IN PREDICTING GLOMERULAR FILTRATION RATE . ESTIMATED GFR I S NOT APPLICABLE FOR DIALYSIS PATIEN TS. PROTHROMBIN [id number] 09:40:00 Test Item Value Reference Range Interpretation Comments PROTIME (BEAKER) (test code = 14.2 seconds 11.7-14.7 759) INR (BEAKER) (test code = 370) 1.1 <=5.9 RECOMMENDED COUMADIN/WARFARIN INR THERAPY RANGESSTANDARD DOSE: 2.0 - 3.0 Includes: PROPHYLAXIS forvenous thrombosis, systemic embolization; TREATMENT for venous thrombosis and/or pulmonary embolus.HIGH RISK: Target INR is 2.5-3.5 for patients with mechanical heart valves.[id number] 15:17:00 Test Item Value Reference Range Interpretation Comments HEMOGLOBIN (BEAKER) (test code = 15.3 GM/DL 13.7-17.5 410)
[2021-06-16] MEDS ORDERED: LIDOCAINE 1% MPF 5 ML VIAL ONE (19:37)
--- NOTE | 2021-06-16 20:06 | ER ---
Nurse's Notes [facility] Name: Christ Mesa Age: 66 yrs Sex: Male : 1955 Arrival Date: 06/16/2021 Time: 19:17 Bed 13 Private MD: Diagnosis: Laceration without foreign body of left index finger without damage to nail;Superficial foreign body of left index finger, initial encounter-removed Presentation: 06/16 19:22 Chief complaint: Patient states: "I was using a table saw and my finger got to close to ab2 the blade and got the tip of it.". Coronavirus screen: Vaccine status: Patient reports receiving the 2nd dose of the covid vaccine. Client denies travel out of the [place] in the last 14 days. At this time, the client does not indicate any symptoms associated with coronavirus-19. Ebola Screen: Patient negative for fever greater than or equal to 101.5 degrees Fahrenheit, and additional compatible Ebola Virus Disease symptoms Patient denies exposure to infectious person. Patient denies travel to an Ebola-affected area in the 21 days before illness onset. No symptoms or risks identified at this time. Initial Sepsis Screen: Does the patient meet any 2 criteria? No. Patient's initial sepsis screen is negative. Does the patient have a suspected source of infection? No. Patient's initial sepsis screen is negative. Risk Assessment: Do you want to hurt yourself or someone else? Patient reports no desire to harm self or others. Onset of symptoms is unknown. 19:22 Method Of Arrival: Ambulatory ab2 19:22 Acuity: CASEY 4 ab2 Triage Assessment: 19:25 General: Appears in no apparent distress. comfortable, Behavior is calm, cooperative, ab2 appropriate for age. Pain: Complains of pain in palmar aspect of distal phalanx of left index finger Pain currently is 7 out of 10 on a pain scale. Musculoskeletal: Reports pain in palmar aspect of distal phalanx of left index finger. Injury Description: Laceration sustained to palmar aspect of distal phalanx of left index finger a small amount of bleeding noted at this time. Historical: - Allergies: 19:24 No Known Allergies; ab2 - PMHx: 19:24 High Cholesterol; PROSTATE CA; ab2 - PSHx: 19:24 Prostate removal; ab2 - Immunization history:: Client reports receiving the 2nd dose of the Covid vaccine, Pneumococcal vaccine is up to date, Flu vaccine is up to date. - Social history:: Smoking status: Patient denies any tobacco usage or history of. Screenin:25 Abuse screen: Denies threats or abuse. Denies injuries from another. Nutritional ab2 screening: No deficits noted. Tuberculosis screening: No symptoms or risk factors identified. Fall Risk None identified. Assessment: 19:26 General: Appears uncomfortable, Behavior is calm, cooperative, anxious. Pain: Complains ll3 of pain in palmar aspect of middle phalanx of left index finger and left hand and palmar aspect of distal phalanx of left index finger. Neuro: Level of Consciousness is awake, alert, obeys commands, Oriented to person, place, time, situation. Cardiovascular: Patient's skin is warm and dry. Derm: Wound noted palmar aspect of middle phalanx of left index finger and left hand and palmar aspect of distal phalanx of left index finger Reports States cut left index finger on table saw. Musculoskeletal: Circulation, motion, and sensation intact. Vital Signs: 19:22 BP 137 / 110; Pulse 92; Resp 16; Temp 98.3(TE); Pulse Ox 98% on R/A; Weight 104.33 kg; ab2 Height 5 ft. 11 in. (180.34 cm); Pain 7/10; 20:19 BP 135 / 90; Pulse 83; Resp 15; Pulse Ox 97% on R/A; ll3 19:22 Body Mass Index 32.08 (104.33 kg, 180.34 cm) ab2 ED Course: 19:17 Patient arrived in ED. ja2 19:24 Triage completed. ab2 19:25 Arm band placed on right wrist. ab2 19:26 Patient has correct armband on for positive identification. Bed in low position. Call ll3 light in reach. Side rails up X 1. Adult w/ patient. 19:26 Patient did not have IV access during this emergency room visit. Dressings: Tube gauze ll3 X 1; palmar aspect of middle phalanx of left index finger and palmar aspect of distal phalanx of left index finger Surgicel. Irrigation of laceration on palmar aspect of middle phalanx of left index finger and palmar aspect of distal phalanx of left index finger irrigated with normal saline Hibiclens solution Patient tolerated well. 19:28 Talia Melo FNP-C is [facility]. kb 19:28 Tani Quintana MD is Attending Physician. kb 20:04 Joan Shrestha, RN is Primary Nurse. ll3 20:19 No provider procedures requiring assistance completed. ll3 Administered Medications: 19:50 Drug: Lidocaine (1 %) 1 vials {Note: Administered by BEV Ravi.} Volume: 5 ll3 ml; Route: Infiltration; Site: affected area; Outcome: 20:06 Discharge ordered by MD. kb 20:19 Discharged to home ambulatory, with family. ll3 20:19 Condition: stable 20:19 Discharge instructions given to patient, Instructed on discharge instructions, follow up and referral plans. Demonstrated understanding of instructions, follow-up care. 20:20 Patient left the ED. ll3 Signatures: Talia Melo FNP-C FNP-Ckb Paola Stahl ja2 Joan Shrestha RN RN 3 John Guzman2 Corrections: (The following items were deleted from the chart) 20:07 20:04 General: Appears uncomfortable, Behavior is calm, cooperative, anxious, ll3 ll3 20:07 20:04 Pain: Complains of pain in palmar aspect of middle phalanx of left index finger ll3 and left hand and palmar aspect of distal phalanx of left index finger ll3 20:07 20:04 Neuro: Level of Consciousness is awake, alert, obeys commands, Oriented to ll3 person, place, time, situation, ll3 20:07 20:04 Cardiovascular: Patient's skin is warm and dry. ll3 ll3 20:07 20:04 Derm: Wound noted palmar aspect of middle phalanx of left index finger and left ll3 hand and palmar aspect of distal phalanx of left index finger Reports States cut left index finger on table saw ll3 20:07 20:04 Musculoskeletal: Circulation, motion, and sensation intact. ll3 ll3
--- NOTE | 2021-06-16 20:06 | EDPHYS ---
Physician Documentation [facility] Name: Christ Mesa Age: 66 yrs Sex: Male : 1955 Arrival Date: 06/16/2021 Time: 19:17 Bed 13 Private MD: ED Physician Tani Quintana HPI: 06/16 20:04 This 66 yrs old Male presents to ER via Ambulatory with complaints of Finger Injury. kb Historical: - Allergies: 19:24 No Known Allergies; ab2 - PMHx: 19:24 High Cholesterol; PROSTATE CA; ab2 - PSHx: 19:24 Prostate removal; ab2 - Immunization history:: Client reports receiving the 2nd dose of the Covid vaccine, Pneumococcal vaccine is up to date, Flu vaccine is up to date. - Social history:: Smoking status: Patient denies any tobacco usage or history of. ROS: 20:02 Constitutional: Negative for fever, chills, and weight loss. kb 20:02 Skin: Positive for avulsion, of the palmar aspect of distal phalanx of left index finger. 20:02 All other systems are negative. Exam: 20:02 Constitutional: This is a well developed, well nourished patient who is awake, alert, kb and in no acute distress. Head/Face: Normocephalic, atraumatic. ENT: Moist Mucous membranes Respiratory: Respirations even and unlabored. No increased work of breathing. Talking in full sentences MS/ Extremity: Pulses equal, no cyanosis. Neurovascular intact. Full, normal range of motion. Neuro: Awake and alert, GCS 15, oriented to person, place, time, and situation. Moves all extremities. Normal gait. Psych: Awake, alert, with orientation to person, place and time. Behavior, mood, and affect are within normal limits. 20:02 Skin: injury, avulsion(s), a small of the palmar aspect of distal phalanx of left index finger, FB to medial left index finger. Vital Signs: 19:22 BP 137 / 110; Pulse 92; Resp 16; Temp 98.3(TE); Pulse Ox 98% on R/A; Weight 104.33 kg; ab2 Height 5 ft. 11 in. (180.34 cm); Pain 7/10; 20:19 BP 135 / 90; Pulse 83; Resp 15; Pulse Ox 97% on R/A; ll3 19:22 Body Mass Index 32.08 (104.33 kg, 180.34 cm) ab2 Procedures: 20:02 Foreign Body Removal: sliver of wood, from the left palmar aspect of middle phalanx of kb left index finger, by needle, tweezers, The patient tolerated the removal well. MDM: 19:28 Patient medically screened. kb 20:02 Data reviewed: vital signs, nurses notes. Data interpreted: Pulse oximetry: on room air kb is 98 %. Interpretation: normal. Counseling: I had a detailed discussion with the patient and/or guardian regarding: the historical points, exam findings, and any diagnostic results supporting the discharge/admit diagnosis, the need for outpatient follow up, a family practitioner, to return to the emergency department if symptoms worsen or persist or if there are any questions or concerns that arise at home. 06/16 20:11 Order name: Dressing - Wound; Complete Time: 20:18 kb 06/16 20:11 Order name: Gloves, Sterile; Complete Time: 20:18 kb 06/16 20:11 Order name: Setup Suture Tray; Complete Time: 20:18 kb Administered Medications: 19:50 Drug: Lidocaine (1 %) 1 vials {Note: Administered by BEV Ravi.} Volume: 5 ll3 ml; Route: Infiltration; Site: affected area; Disposition: 06/17 02:15 Co-signature as Attending Physician, Tani Quintana MD. [email or web address] Disposition Summary: 06/16/21 20:06 Discharge Ordered Location: Home kb Condition: Stable kb Diagnosis - Laceration without foreign body of left index finger without damage to nail kb - Superficial foreign body of left index finger, initial encounter - removed kb Followup: kb - With: Emergency Department - When: As needed - Reason: Worsening of condition Followup: kb - With: Private Physician - When: 2 - 3 days - Reason: Recheck today's complaints, Continuance of care, Re-evaluation by your physician Discharge Instructions: - Discharge Summary Sheet kb - Sliver Removal, Care After kb - Laceration Care, Adult, [id number] kb - Deep Skin Avulsion kb Forms: - Medication Reconciliation Form kb - Thank You Letter kb - Antibiotic Education kb - Prescription Opioid Use kb Signatures: Talia Melo FNP-C BEV-Flavio Tani Quintana MD MD [email or web address] Joan Shrestha, HILARIO RN ll3 John Guzman2
[2021-06-16 22:29] VITALS: BP 135/90; TEMP 98.3; O2SAT 97
== END 2021-06-16 20:20 | disposition home or self-care (01) ==
LOC: ER 19:14
DX: S61.221A Laceration with foreign body of left index finger without damage to nail, initial encounter (principal); W27.0XXA Contact with workbench tool, initial encounter
CPT/HCPCS: 99283